=== PATIENT | male | born 1940 | race Two or more races ===

== ENCOUNTER 2017-01-18 14:43 | Emergency (ER) | payer MEDICARE, OTHER ==
--- NOTE | 2017-01-18 15:27 | PHYS DOC ---
Past History Past Medical History: CAD, CHF, Diabetes, Renal Failure, Vascular Disease Smoking: Non-smoker Alcohol Use: None Adult General Chief Complaint Chief Complaint: SYNCOPE HPI HPI Patient is a 77 year old male who presents with syncopal episode prior to arrival at home was standing going to the bathroom brief unresponsiveness no trauma to the head or neck. Denies chest pain shortness of breath vomiting or diarrhea. He recently moved here from [place] does not have a local doctor is on multiple medications for insulin-dependent diabetes and chronic renal failure with the need for possible dialysis and peripheral vascular disease. He does take Plavix and Lasix. Review of Systems Review of Systems Constitutional: Denies fever or chills [] Eyes: Denies change in visual acuity, redness, or eye pain [] HENT: Denies nasal congestion or sore throat [] Respiratory: Denies cough or shortness of breath [] Cardiovascular: No additional information not addressed in HPI [] GI: Denies abdominal pain, nausea, vomiting, bloody stools or diarrhea [] : Denies dysuria or hematuria [] Musculoskeletal: Denies back pain or joint pain [] Integument: Denies rash or skin lesions [] Neurologic: Denies headache, focal weakness or sensory changes [] Endocrine: Denies polyuria or polydipsia [] All other systems were reviewed and found to be within normal limits, except as documented in this note. Physical Exam Physical Exam Constitutional: Well developed, well nourished, no acute distress, non-toxic appearance. [] HENT: Normocephalic, atraumatic, bilateral external ears normal, oropharynx moist, no oral exudates, nose normal. [] Eyes: PERRLA, EOMI, conjunctiva normal, no discharge. [] Neck: Normal range of motion, no tenderness, supple, no stridor. [] Cardiovascular:Heart rate regular rhythm, no murmur [] Lungs & Thorax: Bilateral breath sounds clear to auscultation [] Abdomen: Bowel sounds normal, soft, no tenderness, no masses, no pulsatile masses. [] Skin: Warm, dry, no erythema, no rash. [] Back: No tenderness, no CVA tenderness. [] Extremities: No tenderness, no cyanosis, no clubbing, ROM intact, no edema. [] Neurologic: Alert and oriented X 3, normal motor function, normal sensory function, no focal deficits noted. [] Psychologic: Affect normal, judgement normal, mood normal. [] EKG EKG EKG[] normal sinus rhythm rate of 63 no STEMI QTC 423 my interpretation Radiology/Procedures Radiology/Procedures Chest x-ray no acute cardiopulmonary process my interpretation and review of images.[] Course & Med Decision Making Course & Med Decision Making Pertinent Labs and Imaging studies reviewed. (See chart for details) Plan to check labs EKG and chest x-ray and then reassess the situation. Patient appears well and has no complaints physically at this moment in time. Daughter reports she's passed out one other time.[ Labs demonstrate what I suspect to be chronic renal failure otherwise unremarkable chest x-ray showed no fluid overload or heart failure. Patient feels fine I recommended admission to the hospital for the syncope any physical therapy consultation and nephrology referral and they are declining this at this time the daughter is in process of getting his insurance transferred and then getting set up to sees various specialists.] Dragon Disclaimer Dragon Disclaimer This electronic medical record was generated, in whole or in part, using a voice recognition dictation system. Departure Departure: Impression: Primary Impression: Micturition syncope Additional Impressions: Chronic renal failure General weakness Patient Instructions: Chronic Renal Insufficiency, Syncope, [id number] Additional Instructions: Please follow-up with a local primary care doctor. Problem Qualifiers MIRNA GALICIA MD Jan 18, 2017 15:27
--- NOTE | 2017-01-18 15:27 | RAD ---
Single view of the Chest 01/18/2017 5:11 PM Indication: syncope Comparison: None Findings: There is no focal consolidation or infiltrate identified. There is no effusion or pneumothorax. The cardiomediastinal silhouette and pulmonary vasculature are within normal limits. No osseous abnormality is identified. Impression: No evidence of acute cardiopulmonary process.
[2017-01-18 15:44] LABS: BASO % 1 % (0-3); EOS # 0.2 x10^3/uL (0.0-0.7); EOS % 3 % (0-3); HEMATOCRIT 38.9 % (39.0-53.0); LYMPH % 18 % (24-48); MEAN CORPUSCULAR HEMOGLOBIN 33 pg (25-35); MEAN CORPUSCULAR HGB CONC 33 g/dL (31-37); MEAN CORPUSCULAR VOLUME 98 fL (79-100); MONO # 0.4 x10^3/uL (0.0-1.1); MONO % 7 % (0-9); NEUT % 71 % (31-73); PLATELET COUNT 170 x10^3/uL (140-400); RED BLOOD COUNT 3.98 x10^6/uL (4.30-5.70); RED CELL DISTRIBUTION WIDTH 16.5 % (11.5-14.5); WHITE BLOOD COUNT 5.7 x10^3/uL (4.0-11.0)
[2017-01-18 15:55] LABS: ALBUMIN 3.8 g/dL (3.4-5.0); ALBUMIN/GLOBULIN RATIO 0.9 (1.0-1.7); CALCIUM 10.6 mg/dL (8.5-10.1); GFR 20.4; POTASSIUM 4.7 mmol/L (3.5-5.1); TOTAL BILIRUBIN 0.4 mg/dL (0.2-1.0); TOTAL PROTEIN 8.2 g/dL (6.4-8.2)
--- NOTE | 2017-01-18 16:51 | EKG ---
[address] [address] Test Date: 2017-01-18 Test Time: 16:46:31 Pat Name: CAITIE AKERS Department: Room: Gender: M Relief Charge Nurse: MIGUEL : 1940 Requested By: MIRNA GALICIA Order Number: [id number] Reading MD: Get Yancey MD Measurements Intervals [place] Rate: 63 P: -62 HI: 128 QRS: -66 QRSD: 118 T: 79 QT: 410 QTc: 423 Interpretive Statements SINUS RHYTHM ABNORMAL LEFT AXIS DEVIATION LEFT ANTERIOR FASCICULAR BLOCK Electronically Signed On 01-22-2017 14:09:33 [employer] R[address]TE DELIVERER by Get Yancey MD
[2017-01-18 17:37] VITALS: BP 144/88
== END 2017-01-18 16:50 | disposition home or self-care (01) ==
LOC: ER 14:43
DX: R55 Syncope and collapse (principal); I13.0 Hypertensive heart and chronic kidney disease with heart failure and stage 1 through stage 4 chronic kidney disease, or unspecified chronic kidney disease; E10.22 Type 1 diabetes mellitus with diabetic chronic kidney disease; N18.9 Chronic kidney disease, unspecified; I50.9 Heart failure, unspecified; I25.10 Atherosclerotic heart disease of native coronary artery without angina pectoris; Z79.4 Long term (current) use of insulin
CPT/HCPCS: 36415; 71010; 80053; 84484; 85025; 93005; 99285-25

== ENCOUNTER 2017-02-16 11:09 | Inpatient (IN) | payer MEDICARE ==
[~2017-02-16] VITALS: Ht 170.2 cm; Wt 55.3 kg
[2017-02-16 12:39] LABS: BASO % 1 % (0-3); EOS # 0.2 x10^3/uL (0.0-0.7); EOS % 4 % (0-3); HEMATOCRIT 39.6 % (39.0-53.0); LYMPH # 1.4 x10^3/uL (1.0-4.8); LYMPH % 25 % (24-48); MEAN CORPUSCULAR HEMOGLOBIN 33 pg (25-35); MEAN CORPUSCULAR HGB CONC 33 g/dL (31-37); MEAN CORPUSCULAR VOLUME 99 fL (79-100); MONO # 0.4 x10^3/uL (0.0-1.1); MONO % 8 % (0-9); NEUT # 3.4 x10^3uL (1.8-7.7); NEUT % 62 % (31-73); PLATELET COUNT 144 x10^3/uL (140-400); RED BLOOD COUNT 4.01 x10^6/uL (4.30-5.70); RED CELL DISTRIBUTION WIDTH 15.6 % (11.5-14.5); WHITE BLOOD COUNT 5.5 x10^3/uL (4.0-11.0)
[2017-02-16] MEDS ORDERED: CALC0.256 PO (12:56)
[2017-02-16] MEDS ORDERED: ALLO100T66 PO (12:56)
[2017-02-16] MEDS ORDERED: FURO-69 PO (12:56)
[2017-02-16] MEDS ORDERED: CLOP75TA57 PO (12:56)
[2017-02-16] MEDS ORDERED: DONE5TAB56 PO (12:56)
[2017-02-16] MEDS ORDERED: ATEN-56 PO (12:56)
[2017-02-16] MEDS ORDERED: SIMV5TAB PO (12:56)
[2017-02-16] MEDS ORDERED: PARO10TA57 PO (12:56)
[2017-02-16 12:58] LABS: CALCIUM 9.7 mg/dL (8.5-10.1); GFR 20.4
[2017-02-16 12:59] LABS: BILIRUBIN,URINE NEG (NEG); CLARITY,URINE CLEAR; COLOR,URINE STRAW; GLUCOSE,URINE NEG (NEG)
[2017-02-16 13:00] LABS: BACTERIA,URINE 0 /HPF (0-FEW); NITRITE,URINE NEG (NEG); RBC,URINE 0 /HPF (0-2); SQUAMOUS EPITHELIAL CELL,UR OCC /LPF; UROBILINOGEN,URINE 0.2 mg/dL (0.2 mg/dL); WBC,URINE 0 /HPF (0-4)
[2017-02-16] MEDS ORDERED: INSU100C4 SQ (13:08)
[2017-02-16] MEDS ORDERED: TOBR5DRO6 OD (13:11)
[2017-02-16] MEDS ORDERED: MULT1TAB52 PO (13:11)
[2017-02-16 13:18] VITALS: BP 166/88
[2017-02-16 15:01] VITALS: BP 157/79
[2017-02-16] MEDS: IV NORMAL SALINE 1,000ML 1,000 ML IV SCH (15:15)
[2017-02-16] MEDS ORDERED: INSULIN ASPART 300 UNITS/3 ML INSULN.PEN SQ SCH (16:30)
[2017-02-16] MEDS: TOBRAMYCIN 0.3% OPHTH SOLUTION 5ML BOTTLE. OD SCH ×2 (17:40→20:55)
--- NOTE | 2017-02-16 19:17 | RAD ---
CT Head W/O Contrast: History: UNSTEADY GAIT, TREMORS
Comparison: none Axial images were obtained without contrast. The quintero and white matter appears normal and symmetrical for the patients age. There is no mass effect, extraaxial fluid collections or hydrocephalus. There is no gross bleed. There is no focal loss of quintero-white matter distinction to suggest acute ischemia, i.e. stroke. Impression: No acute findings. PQRS Compliance Statement: One or more of the following individualized dose reduction techniques were utilized for this examination: 1. Automated exposure control 2. Adjustment of the mA and/or kV according to patient size 3. Use of iterative reconstruction technique Electronically signed by: Toño Case III, MD (02/16/2017 7:15 PM) [facility]
[2017-02-16] MEDS ORDERED: MECLIZINE 12.5 MG TABLET. PO PRN (19:30)
[2017-02-16 19:46] VITALS: BP 156/84
[2017-02-16] MEDS: SIMVASTATIN 10 MG TABLET PO SCH (20:48)
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
[2017-02-16] MEDS ORDERED: INSULIN DETEMIR 300 UNITS/3 ML INSULN.PEN. SQ SCH (21:00)
[2017-02-16] MEDS ORDERED: INSULN ASP PRT/INSULIN ASPART 300 UNITS/3 ML INSULN.PEN. SQ SCH (21:00)
[2017-02-16 23:29] VITALS: BP 162/83
[2017-02-16] MEDS ORDERED: Influenza vaccine per PROTOCOL. MC PRN (23:30)
[2017-02-16] MEDS ORDERED: PNEUMOCOCCAL VAX SCREEN. MC PRN (23:30)
[2017-02-17] MEDS: IV NORMAL SALINE 1,000ML 1,000 ML IV SCH ×2 (03:51→19:58)
[2017-02-17 05:43] VITALS: BP 144/68
[2017-02-17 06:08] LABS: CALCIUM 9.2 mg/dL (8.5-10.1); CREATININE 2.8 mg/dL (0.7-1.3); GFR 22.1; POTASSIUM 3.9 mmol/L (3.5-5.1)
[2017-02-17] MEDS ORDERED: DEXTROSE 50% 25 GM / 50ML DISP.SYRIN. IV ONE (06:20)
[2017-02-17] MEDS ORDERED: DEXTROSE 50% 25 GM / 50ML DISP.SYRIN. IV PRN (07:15)
[2017-02-17] MEDS: MULTIVITAMIN with MINERAL TABLET. PO SCH (08:35)
[2017-02-17] MEDS: FUROSEMIDE 20 MG TABLET PO SCH (08:37)
[2017-02-17] MEDS: ATENOLOL 25 MG TABLET PO SCH (08:37)
[2017-02-17] MEDS: CLOPIDOGREL BISULFATE 75 MG TABLET PO SCH (08:37)
[2017-02-17] MEDS: ALLOPURINOL 100 MG TABLET. PO SCH (08:37)
[2017-02-17] MEDS: CALCITRIOL 0.25 MCG CAPSULE PO SCH (08:38)
[2017-02-17] MEDS: PARoxetine 10 MG TABLET PO SCH (08:38)
[2017-02-17] MEDS: TOBRAMYCIN 0.3% OPHTH SOLUTION 5ML BOTTLE. OD SCH ×4 (08:38→19:57)
[2017-02-17] MEDS ORDERED: FLU VACC QS2017-18 (36MOS+)/PF 0.5 ML SYRINGE. VAX IM ONE (09:00)
[2017-02-17] MEDS ORDERED: PNEUMOC CONJ VACC 23-VALENT 0.5 ML VIAL. VAX IM ONE (09:00)
--- NOTE | 2017-02-17 09:17 | RAD ---
Two-view chest 02/16/2017 Clinical indication: Shortness of air. Comparison: 01/18/2017 chest Findings: Cardiac and mediastinal silhouettes unremarkable. No pleural effusion, pneumothorax or focal consolidation. Impression: No acute cardiopulmonary abnormality.
[2017-02-17 10:40] LABS: ALBUMIN 3.5 g/dL (3.4-5.0); DIRECT BILIRUBIN 0.1 mg/dL (0.0-0.2); TOTAL BILIRUBIN 0.3 mg/dL (0.2-1.0); TOTAL PROTEIN 7.1 g/dL (6.4-8.2)
[2017-02-17 11:13] VITALS: BP 108/61
[2017-02-17] MEDS ORDERED: PRIMIDONE 50 MG TABLET PO ONE (15:30)
[2017-02-17 15:33] VITALS: BP 101/44
--- NOTE | 2017-02-17 19:56 | PN ---
DATE: SUBJECTIVE: A 77-year-old gentleman with change in mental status, resting fairly comfortably, still has decreased mentation as well as paucity of speech. Blood pressure 140/60, respiratory rate 14, pulse in the 50s. The patient seems to be resting fairly well. He is being worked by PT, OT, seems to be breathing a little bit better. OBJECTIVE: VITAL SIGNS: Blood pressure 140/60, respiratory rate 14, pulse ___. LUNGS: Diminished throughout, but clear. CARDIOVASCULAR: Regular sinus rhythm. ABDOMEN: Soft. EXTREMITIES: The patient still has a paucity of movements as well. Marked rigidity and stiffness noted. Sugar apparently did drop down to 32 this morning, given additional sugar as well as cut back on his insulin at night. He has shown some improvement on his renal function, probably could be from dehydration and seems to be doing better along that line as well. In any case, the patient still has marked rigidity. CT scan was basically unremarkable here. Chest x-ray showed no acute findings. Presently, he is still receiving IV fluids, IV medications and other labs results are still pending in terms of his B12, folate, and did a RPR. IMPRESSION: Change in mental status, marked rigidity, familial tremor versus Parkinson disease versus general encephalopathy, type 2 diabetes, poor control. PLAN: As above. CHARLES COX MD DR: MARIAELENA/nancy JOB#: [id number] / [id number]
[2017-02-17] MEDS: SIMVASTATIN 10 MG TABLET PO SCH (19:57)
[2017-02-17] MEDS: PRIMIDONE 50 MG TABLET PO SCH (19:57)
[2017-02-17] MEDS: INSULIN DETEMIR 300 UNITS/3 ML INSULN.PEN. SQ SCH (19:59)
[2017-02-17 20:03] VITALS: BP 126/64
[2017-02-17 23:22] VITALS: BP 154/73
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
--- NOTE | 2017-02-18 01:06 | PN ---
DATE: SUBJECTIVE: The patient appeared to resting comfortably and has no new medical or neurological complaints. OBJECTIVE: GENERAL: Thin [place]ib[place]ian male, not in acute distress. VITAL SIGNS: Blood pressure 108/61, respiratory rate 14, pulse is 54, temperature 97.6, and oxygen saturation 99% on room air. HEENT: Normocephalic, atraumatic, otherwise unremarkable. NECK: Supple. Negative for carotid bruit, lymphadenopathy or thyromegaly. LUNGS: Clear to A and P. CARDIOVASCULAR: Regular rate and rhythm, normal S1, S2. ABDOMEN: Soft. Bowel sounds positive. EXTREMITIES: Negative for cyanosis, clubbing or pitting edema. NEUROLOGICAL: Mental Status: The patient is alert and oriented x 3. Speech is fluent. There is no language dysfunction, otherwise unremarkable. Cranial nerves are intact. Motor examination revealed no focal muscle bulk was seen. The tone is normal. The strength is 4/5 throughout. Sensory examination revealed normal pinprick and light touch senses throughout. Deep tendon reflexes were symmetric, but hyporeflexia in the upper and lower extremities. Gait unsteady stance. IMPRESSION: 1. Essential tremor. 2. Vertigo. 3. Multiple medical problems include hypertension, hyperlipidemia, diabetes mellitus, coronary artery disease. RECOMMENDATIONS: Continue with current medical and neurological care. Physical therapy as tolerated. M Levar FROST MD DR: KENNETH/nancy JOB#: [id number] / [id number]
[2017-02-18 02:06] LABS: HEMOGLOBIN A1C 6.6 % (4.8-5.6)
[2017-02-18] MEDS: IV NORMAL SALINE 1,000ML 1,000 ML IV SCH ×2 (04:55→20:12)
[2017-02-18 05:30] VITALS: BP 104/51
[2017-02-18 07:29] LABS: BASO % 1 % (0-3); EOS # 0.2 x10^3/uL (0.0-0.7); EOS % 5 % (0-3); HEMATOCRIT 28.4 % (39.0-53.0); HEMOGLOBIN 9.5 g/dL (13.0-17.5); LYMPH # 1.2 x10^3/uL (1.0-4.8); LYMPH % 28 % (24-48); MEAN CORPUSCULAR HEMOGLOBIN 33 pg (25-35); MEAN CORPUSCULAR HGB CONC 33 g/dL (31-37); MEAN CORPUSCULAR VOLUME 99 fL (79-100); MONO # 0.5 x10^3/uL (0.0-1.1); MONO % 11 % (0-9); NEUT # 2.4 x10^3uL (1.8-7.7); NEUT % 55 % (31-73); PLATELET COUNT 118 x10^3/uL (140-400); RED BLOOD COUNT 2.87 x10^6/uL (4.30-5.70); RED CELL DISTRIBUTION WIDTH 15.8 % (11.5-14.5); WHITE BLOOD COUNT 4.3 x10^3/uL (4.0-11.0)
[2017-02-18 07:56] LABS: ALBUMIN 2.9 g/dL (3.4-5.0); ALBUMIN/GLOBULIN RATIO 0.9 (1.0-1.7); CALCIUM 8.7 mg/dL (8.5-10.1); CREATININE 2.8 mg/dL (0.7-1.3); GFR 22.1; POTASSIUM 4.5 mmol/L (3.5-5.1); TOTAL BILIRUBIN 0.3 mg/dL (0.2-1.0)
[2017-02-18] MEDS: CLOPIDOGREL BISULFATE 75 MG TABLET PO SCH (08:19)
[2017-02-18] MEDS: FUROSEMIDE 20 MG TABLET PO SCH (08:19)
[2017-02-18] MEDS: MULTIVITAMIN with MINERAL TABLET. PO SCH (08:19)
[2017-02-18] MEDS: PARoxetine 10 MG TABLET PO SCH (08:19)
[2017-02-18] MEDS: ALLOPURINOL 100 MG TABLET. PO SCH (08:19)
[2017-02-18] MEDS: TOBRAMYCIN 0.3% OPHTH SOLUTION 5ML BOTTLE. OD SCH ×4 (08:19→20:12)
[2017-02-18] MEDS: ATENOLOL 25 MG TABLET PO SCH (08:20)
[2017-02-18] MEDS: CALCITRIOL 0.25 MCG CAPSULE PO SCH (08:21)
[2017-02-18 11:11] VITALS: BP 97/60
[2017-02-18] MEDS: methylPREDNISolone SOD SUCC PF 40 MG/ML VIAL. IV SCH (11:59)
[2017-02-18 15:26] VITALS: BP 152/87
[2017-02-18 15:27] VITALS: BP 152/78
[2017-02-18 19:52] VITALS: BP 129/63
[2017-02-18] MEDS: PRIMIDONE 50 MG TABLET PO SCH (20:12)
[2017-02-18] MEDS: SIMVASTATIN 10 MG TABLET PO SCH (20:12)
[2017-02-18] MEDS: INSULIN DETEMIR 300 UNITS/3 ML INSULN.PEN. SQ SCH (20:13)
--- NOTE | 2017-02-19 02:34 | PN ---
DATE: 02/18/2017 SUBJECTIVE: The patient denies any new medical neurological complaints. The associate director of development is his daughter. The patient appeared to be not in acute distress. OBJECTIVE: GENERAL: Well-developed and well-nourished Welsh male, not in acute distress. VITAL SIGNS: Blood pressure 97/60, respiratory rate 16, pulse is 61, temperature is 97.8, and oxygen saturation 96% on room air. HEENT: Normocephalic and atraumatic, otherwise unremarkable. NECK: Supple. Negative for carotid bruit, lymphadenopathy or thyromegaly. LUNGS: Clear to A and P. CARDIOVASCULAR: Regular rate and rhythm, normal S1, S2. There is no S3 or S4 or murmur. ABDOMEN: Soft. Bowel sounds positive. EXTREMITIES: Negative for cyanosis, clubbing or pitting edema. NEUROLOGICAL EXAM: Mental Status: The patient is alert and oriented to place and time. Speech is fluent in Welsh. ____ Further evaluation is limited because of language barrier. Cranial nerves are grossly intact. Motor Examination: No focal muscle bulk was seen. The tone is normal. The strength is 4/5 throughout. The patient has a very mild postural and kinetic tremors of the upper extremities, which has improved significantly with medications - primidone. Sensory examination is normal to pinprick, light touch, vibratory and position senses. Deep tendon reflexes are symmetric and active without pathologic responses. Gait: The patient is still unsteady, but is able to use a walker. LABORATORY DATA: CBC revealed white blood cells of 4300, hemoglobin 9.5, hematocrit 28.4, and platelet count 118,000. Chemistry revealed sodium of 139, potassium 4.4, chloride 108, CO2 of 22. BUN 45, creatinine 2.8, glucose is 90, calcium is 8.7. IMPRESSION: 1. Essential tremor, has improved. 2. Vertigo, improved with medications. 3. Multiple medical problems include hyperlipidemia, diabetes mellitus, coronary artery disease, and chronic renal failure. 4. ____. RECOMMENDATIONS: 1. We will continue with primidone 1 tablet at bedtime. 2. We will discuss with Dr. Botello about the current treatment with furosemide. 3. The patient needs extensive physical therapy as tolerated. M Levar FROST MD DR: KENNETH/nancy JOB#: [id number] / [id number]
--- NOTE | 2017-02-19 02:44 | PN ---
DATE: 02/18/2017 SUBJECTIVE: A 77-year-old Faroese gentleman in with change in mental status, generalized weakness, failure to thrive. The patient is resting fairly comfortably. Nurses says he seems to be doing a little bit better. Albumin low at 2.9. Blood sugars in the 60s and 70s. His creatinine has come down somewhat with IV fluids. Otherwise, the patient is still very lethargic, but markedly improved from where he was. OBJECTIVE: VITAL SIGNS: Blood pressure approximately 100/60, respirations 16, pulse 60, afebrile. GENERAL: The patient is alert, but disoriented ____ speaks Syriac, we will have a information resources manager. LUNGS: Presently the lungs are diminished but clear. CARDIOVASCULAR: Stable. ABDOMEN: Soft, nontender. PLAN: The patient continues to receive physical and occupational therapy. We may put him on skilled unit for further evaluation and rehabilitation there. IMPRESSION: Failure to thrive, change in mental status, type 2 diabetes. Plan as above. CHARLES COX MD DR: MARIAELENA/nancy JOB#: [id number] / [id number]
[2017-02-19 05:32] VITALS: BP 149/79
[2017-02-19 06:29] LABS: CALCIUM 9.1 mg/dL (8.5-10.1); CREATININE 2.7 mg/dL (0.7-1.3); POTASSIUM 5.2 mmol/L (3.5-5.1)
[2017-02-19 06:32] LABS: BASO % 0 % (0-3); EOS % 0 % (0-3); HEMATOCRIT 30.2 % (39.0-53.0); LYMPH # 0.7 x10^3/uL (1.0-4.8); LYMPH % 10 % (24-48); MEAN CORPUSCULAR HEMOGLOBIN 33 pg (25-35); MEAN CORPUSCULAR HGB CONC 33 g/dL (31-37); MEAN CORPUSCULAR VOLUME 99 fL (79-100); MONO # 0.2 x10^3/uL (0.0-1.1); MONO % 3 % (0-9); NEUT # 6.3 x10^3uL (1.8-7.7); NEUT % 87 % (31-73); PLATELET COUNT 121 x10^3/uL (140-400); RED BLOOD COUNT 3.06 x10^6/uL (4.30-5.70); RED CELL DISTRIBUTION WIDTH 15.7 % (11.5-14.5); WHITE BLOOD COUNT 7.2 x10^3/uL (4.0-11.0)
[2017-02-19] MEDS: CLOPIDOGREL BISULFATE 75 MG TABLET PO SCH (08:45)
[2017-02-19] MEDS: TOBRAMYCIN 0.3% OPHTH SOLUTION 5ML BOTTLE. OD SCH ×4 (08:45→21:28)
[2017-02-19] MEDS: methylPREDNISolone SOD SUCC PF 40 MG/ML VIAL. IV SCH (08:45)
[2017-02-19] MEDS: MULTIVITAMIN with MINERAL TABLET. PO SCH (08:50)
[2017-02-19] MEDS: ALLOPURINOL 100 MG TABLET. PO SCH (08:50)
[2017-02-19] MEDS: FUROSEMIDE 20 MG TABLET PO SCH (08:50)
[2017-02-19] MEDS: CALCITRIOL 0.25 MCG CAPSULE PO SCH (08:51)
[2017-02-19] MEDS: PARoxetine 10 MG TABLET PO SCH (08:51)
[2017-02-19] MEDS: ATENOLOL 25 MG TABLET PO SCH (08:51)
[2017-02-19 11:20] VITALS: BP 147/72
[2017-02-19] MEDS: IV NORMAL SALINE 1,000ML 1,000 ML IV SCH ×2 (13:09→23:19)
[2017-02-19] MEDS: AZTREONAM 0.5 GM in IV NORMAL SALINE 50ML 50 ML IV SCH ×3 (13:09→23:19)
[2017-02-19] MEDS: AMPICILLIN 1 GM in IV NORMAL SALINE 50ML 50 ML IV SCH ×2 (14:18→18:23)
[2017-02-19 15:27] VITALS: BP 167/81
[2017-02-19] MEDS ORDERED: DEXTROSE 50% 25 GM / 50ML DISP.SYRIN. IV PRN (17:00)
[2017-02-19 19:57] VITALS: BP 164/72
[2017-02-19] MEDS: INSULIN ASPART 300 UNITS/3 ML INSULN.PEN SQ SCH (21:00)
[2017-02-19] MEDS: LACTOBACILLUS RHAMNOSUS GG 1 CAPSULE. PO SCH (21:28)
[2017-02-19] MEDS: PRIMIDONE 50 MG TABLET PO SCH (21:28)
[2017-02-19] MEDS: INSULIN DETEMIR 300 UNITS/3 ML INSULN.PEN. SQ SCH (21:29)
--- NOTE | 2017-02-19 22:21 | PN ---
DATE: 02/19/2017 SUBJECTIVE: The patient denies any new medical or neurological complaints. OBJECTIVE: GENERAL: Well-developed, well nourished Nigerian male, not in acute distress. VITAL SIGNS: Blood pressure 149/79, respiratory rate 16, pulse is 68 and regular, temperature 97.8, oxygen saturation is 97% on room air. HEENT: Normocephalic, atraumatic, otherwise, unremarkable. NECK: Supple. Negative for carotid bruit, lymphadenopathy, JVD or thyromegaly. LUNGS: Clear to A and P. CARDIOVASCULAR: Regular rate and rhythm, normal S1, S2. There is no S3, S4 or murmur. ABDOMEN: Soft. Bowel sounds positive. EXTREMITIES: Negative for cyanosis, clubbing or pitting edema. NEUROLOGICAL EXAM: Mental Status: The patient is alert and oriented x 2. Speech is fluent. Further evaluation is limited because of language barrier. Cranial nerves are grossly intact. No focal motor deficit. The strength is 4/5 throughout. Sensory examination revealed normal pinprick and light touch senses throughout. Deep tendon reflexes were symmetric and active without pathologic responses. Gait: The stance is more steady. The patient uses a walker for ambulation. LABORATORY DATA: CBC revealed white blood cells of 7.2 thousand, hemoglobin 10, hematocrit 30, platelet count 121,000. Chemistry revealed sodium of 139, potassium 5.2, chloride 108, CO2 22, BUN 47, creatinine 2.7, glucose 209. IMPRESSION: 1. Essential tremor - improved. 2. Vertigo, the patient feels better. 3. Multiple medical problems includes chronic and probably acute renal failure, diabetes mellitus, hypertension, hyperlipidemia, coronary artery disease and unsteady gait. RECOMMENDATIONS: 1. Continue with current management initiated by Dr. Botello. 2. Continue with primidone 50 mg at bedtime and meclizine 12.5 mg t.i.d. p.r.n. for dizziness. 3. Physical therapy as tolerated. M Levar FROST MD DR: KENNETH/nancy JOB#: [id number] / [id number]
[2017-02-20] MEDS: AMPICILLIN 1 GM in IV NORMAL SALINE 50ML 50 ML IV SCH ×4 (00:22→18:00)
[2017-02-20 05:22] VITALS: BP 139/69
[2017-02-20] MEDS: AZTREONAM 0.5 GM in IV NORMAL SALINE 50ML 50 ML IV SCH ×4 (05:28→23:49)
[2017-02-20] MEDS: INSULIN ASPART 300 UNITS/3 ML INSULN.PEN SQ SCH ×4 (07:30→20:54)
--- NOTE | 2017-02-20 08:40 | PN ---
DATE: 02/19/2017 SUBJECTIVE: The patient resting fairly comfortably, still very quiet, not responding very well. The patient does have infection in his ears with pseudomonas and enterococcus. He has been started on IV antibiotic therapy for such. OBJECTIVE: VITAL SIGNS: Blood pressure 160/72, respiratory rate 20, pulse 90, afebrile. The patient is arousable, but very sedate. LUNGS: Diminished throughout, but clear. CARDIOVASCULAR: Regular sinus rhythm. ABDOMEN: Soft, nontender. IMPRESSION: Change in mental status, otitis externa, type 2 diabetes, thrombocytopenia, hyperkalemia, and chronic kidney disease stage 3. PLAN: We will continue with IV antibiotic therapy and possibly get him to some better skilled unit. CHARLES COX MD DR: MARIAELENA/nancy JOB#: [id number] / [id number]
[2017-02-20] MEDS: TOBRAMYCIN 0.3% OPHTH SOLUTION 5ML BOTTLE. OD SCH ×4 (08:41→20:49)
[2017-02-20] MEDS: LACTOBACILLUS RHAMNOSUS GG 1 CAPSULE. PO SCH ×2 (08:43→20:49)
[2017-02-20] MEDS: ALLOPURINOL 100 MG TABLET. PO SCH (08:44)
[2017-02-20] MEDS: MULTIVITAMIN with MINERAL TABLET. PO SCH (08:44)
[2017-02-20] MEDS: CLOPIDOGREL BISULFATE 75 MG TABLET PO SCH (08:45)
[2017-02-20] MEDS: ATENOLOL 25 MG TABLET PO SCH (08:45)
[2017-02-20] MEDS: CALCITRIOL 0.25 MCG CAPSULE PO SCH (08:45)
[2017-02-20] MEDS: FUROSEMIDE 20 MG TABLET PO SCH (08:47)
[2017-02-20] MEDS: predniSONE 5 MG TABLET PO SCH (08:50)
[2017-02-20] MEDS: PARoxetine 20 MG TABLET PO SCH (09:00)
[2017-02-20 10:49] VITALS: BP 106/51
[2017-02-20 15:29] VITALS: BP 135/65
[2017-02-20 19:41] VITALS: BP 153/70
[2017-02-20] MEDS: IV NORMAL SALINE 1,000ML 1,000 ML IV SCH (20:49)
[2017-02-20] MEDS: PRIMIDONE 50 MG TABLET PO SCH (20:49)
[2017-02-20] MEDS: INSULIN DETEMIR 300 UNITS/3 ML INSULN.PEN. SQ SCH (20:53)
--- NOTE | 2017-02-20 21:08 | PN ---
DATE: SUBJECTIVE: The patient was found to have external otitis with pseudomonas. Dr. Botello started him on IV antibiotics. There are no new neurological complaints. OBJECTIVE: GENERAL: Well-developed, well nourished male, not in acute distress. VITAL SIGNS: Blood pressure 139/69, respiratory rate 20, pulse is 67, oxygen saturation 95% on room air. HEENT: Normocephalic, atraumatic. NECK: Supple. Negative for carotid bruit, lymphadenopathy or thyromegaly. LUNGS: Clear to A and P. CARDIOVASCULAR: Regular rhythm, normal S1, S2. ABDOMEN: Soft. Bowel sounds positive. EXTREMITIES: Negative for cyanosis, clubbing or pitting edema. NEUROLOGICAL: Mental Status: The patient is alert and oriented x2. Cranial Nerves: Intact. Motor Examination: No focal muscle bulk was seen. The tone is normal. The strength is 4/5 throughout. The patient has less postural and kinetic tremors. Sensory Examination: Revealed normal pinprick and light touch senses throughout. Deep tendon reflexes are symmetric and active without pathologic responses. Gait: The patient is more steady. IMPRESSION: 1. Postural and kinetic tremors, represent essential tremor, improved with medication. 2. Vertigo, improved. 3. Multiple medical problems include hyperlipidemia, hypertension, coronary artery disease, diabetes mellitus, renal failure, arthritis, and external otitis. RECOMMENDATIONS: Continue with current management and physical therapy as tolerated. M Levar FROST MD DR: KENNETH/nancy JOB#: [id number] / [id number]
--- NOTE | 2017-02-20 21:16 | PN ---
DATE: 02/20/2017 SUBJECTIVE: A 77-year-old gentleman from [place], had been very lethargic, change in mental status. The patient has been found to have a significant pseudomonal infection in his ear, from cultures taken in [place]. He has been switched over to appropriate antibiotic therapy. He is doing much better this morning. He is more alert, more responsive. The patient was up eating which is something I have not seen him do since he has been air. OBJECTIVE: VITAL SIGNS: Blood pressure 140/70, respiratory rate 20, pulse 60, afebrile. GENERAL: The patient is alert. His speech is still somewhat guarded, but he is markedly improved from what he was the other day. LUNGS: Clear to auscultation. CARDIOVASCULAR: Regular sinus rhythm. HEENT: The ears look less infected overall. ABDOMEN: Soft, nontender. EXTREMITIES: No clubbing, cyanosis, nor edema. The patient is making excellent progress overall. His creatinine is also coming down and shows improvement with the IV fluids there. IMPRESSION: Change in mental status, possible encephalopathy from pseudomonal infection of the ear. PLAN: We will continue on IV antibiotic therapy as the pharmacy, whether or not these IVs could be put into some type of either oral or drops, to help him with his continued ear infection. We will send him home, but we will continue with the IV antibiotics for now. CHARLES COX MD DR: MARIAELENA/nancy JOB#: [id number] / [id number]
[2017-02-21] MEDS: AMPICILLIN 1 GM in IV NORMAL SALINE 50ML 50 ML IV SCH ×3 (00:45→12:04)
[2017-02-21] MEDS: IV NORMAL SALINE 1,000ML 1,000 ML IV SCH ×2 (01:55→14:39)
[2017-02-21 05:08] VITALS: BP 154/68
[2017-02-21] MEDS: AZTREONAM 0.5 GM in IV NORMAL SALINE 50ML 50 ML IV SCH ×2 (05:09→14:39)
[2017-02-21 07:15] LABS: CALCIUM 8.5 mg/dL (8.5-10.1); CREATININE 2.4 mg/dL (0.7-1.3); GFR 26.4; POTASSIUM 4.1 mmol/L (3.5-5.1)
[2017-02-21] MEDS: INSULIN ASPART 300 UNITS/3 ML INSULN.PEN SQ SCH ×3 (07:30→16:30)
[2017-02-21] MEDS: TOBRAMYCIN 0.3% OPHTH SOLUTION 5ML BOTTLE. OD SCH ×2 (09:09→14:39)
[2017-02-21] MEDS: ALLOPURINOL 100 MG TABLET. PO SCH (09:10)
[2017-02-21] MEDS: PARoxetine 20 MG TABLET PO SCH (09:10)
[2017-02-21] MEDS: FUROSEMIDE 20 MG TABLET PO SCH (09:10)
[2017-02-21] MEDS: predniSONE 5 MG TABLET PO SCH (09:10)
[2017-02-21] MEDS: CLOPIDOGREL BISULFATE 75 MG TABLET PO SCH (09:10)
[2017-02-21] MEDS: MULTIVITAMIN with MINERAL TABLET. PO SCH (09:10)
[2017-02-21] MEDS: LACTOBACILLUS RHAMNOSUS GG 1 CAPSULE. PO SCH (09:10)
[2017-02-21] MEDS: ATENOLOL 25 MG TABLET PO SCH (09:11)
[2017-02-21] MEDS: CALCITRIOL 0.25 MCG CAPSULE PO SCH (09:11)
[2017-02-21 10:29] VITALS: BP 112/60
[2017-02-21] MEDS ORDERED: ZOLPIDEM 5 MG TABLET. PO PRN ×2 (11:00→22:00)
[2017-02-21 12:22] LABS: FECAL OB PT NEGATIVE (NEG)
[2017-02-21 14:37] VITALS: BP 118/60
[2017-02-21] MEDS ORDERED: LACT1CAP19 PO (15:53)
[2017-02-21] MEDS ORDERED: ZOLP5TAB PO (15:53)
[2017-02-21] MEDS ORDERED: INSU100I17 SQ (15:53)
[2017-02-21] MEDS ORDERED: DEXT50DI3 IV (15:53)
[2017-02-21] MEDS ORDERED: MECL12.52 PO (15:53)
[2017-02-21] MEDS ORDERED: PRED5TAB PO (15:53)
[2017-02-21] MEDS ORDERED: PARO20TA3 PO (15:53)
[2017-02-21] MEDS ORDERED: PRIM50TA24 PO (15:53)
[2017-02-21] MEDS ORDERED: AZTR1VIA2 IV (19:53)
[2017-02-21] MEDS ORDERED: AMPI1VIA3 IV (19:53)
[2017-02-21] MEDS ORDERED: INSU100I27 SQ (19:53)
--- NOTE | 2017-02-21 22:33 | PN ---
DATE: REFERRING PHYSICIAN: Dr. Botello. SUBJECTIVE: The patient denies any new medical or neurological complaints. OBJECTIVE: GENERAL: Well-developed, well-nourished male, not in acute distress. VITAL SIGNS: Blood pressure 154/68, respiratory rate 20, pulse is 60 and regular, temperature 99% on room air. HEENT: Normocephalic, atraumatic, otherwise unremarkable. NECK: Supple. Negative for carotid bruit, lymphadenopathy or thyromegaly. LUNGS: Clear to A and P. CARDIOVASCULAR: Regular rate and rhythm, normal S1, S2. ABDOMEN: Soft. Bowel sounds positive. EXTREMITIES: Negative for cyanosis, clubbing or pitting edema. NEUROLOGICAL EXAM: Mental Status: The patient is alert and oriented x 2. He follows commands. He follows 1-step commands. However, the examination is limited because of language barrier. His daughter is not available for translation. The patient appears not in acute distress. No facial asymmetry. Pupils are reactive to light and accommodation. The extraocular movements are intact. There is no nystagmus. The patient moves all upper and lower extremities well equally. Mild postural and kinetic tremors of the upper extremities were noted. The tone is normal. The strength is 4/5 throughout. Sensory examination: Normal pinprick and light touch senses. Deep tendon reflexes are symmetric and active without pathologic responses. Gait: The patient is more steady than been before. IMPRESSION: 1. Tremor of the upper extremities represents essential tremor, improved by primidone. 2. Multiple medical problems include diabetes mellitus, hypertension, hyperlipidemia, external otitis, chronic renal failure and possible mental status changes, difficulty to assess this time because of language barrier, and depression. RECOMMENDATIONS: Continue with current management initiated by Dr. Botello and continue with current medications. M Levar FROST MD DR: KENNETH/nancy JOB#: [id number] / [id number]
--- NOTE | 2017-02-22 07:56 | PN ---
DATE: 02/21/2017 SUBJECTIVE: This is a 77-year-old male with diabetes, has significant infection in his right ear. The patient is doing much better with the IV antibiotic therapy. He grew out E. coli, Pseudomonas, Providencia, Enterococcus faecalis out of the ear, and he is on appropriate IV antibiotic therapy. Blood pressure 122/56, respiratory rate 20, pulse 80, afebrile. I talked with the daughter. We can try to continue IV antibiotic therapy as an outpatient and make further assessment. The patient is markedly more alert than he has been since he came in. We will continue on the IV antibiotic therapy and make further evaluation on him per those results. OBJECTIVE: LUNGS: Clear. CARDIOVASCULAR: Regular sinus rhythm. EARS: Right ear still swollen, but not as bad as it was. The drainage is markedly diminished. IMPRESSION: Change in mental status, significant otitis media external otitis. PLAN: As above, to continue his IV antibiotic therapy. CHARLES COX MD DR: MARIAELENA/nancy JOB#: [id number] / [id number]
== END 2017-02-21 18:24 | disposition swing bed (61) | DRG 154 ==
LOC: 1 SOUTH 11:56
PROVIDERS: ADMIT Family Medicine; ATTEND Family Medicine
DX: H60.21 Malignant otitis externa, right ear (principal); G93.41 Metabolic encephalopathy; D69.6 Thrombocytopenia, unspecified; E11.22 Type 2 diabetes mellitus with diabetic chronic kidney disease; E87.5 Hyperkalemia; N18.3 Chronic kidney disease, stage 3 (moderate); Z68.1 Body mass index [BMI] 19.9 or less, adult; R62.7 Adult failure to thrive; E78.5 Hyperlipidemia, unspecified; F32.9 Major depressive disorder, single episode, unspecified; G25.0 Essential tremor; I12.9 Hypertensive chronic kidney disease with stage 1 through stage 4 chronic kidney disease, or unspecified chronic kidney disease; I25.10 Atherosclerotic heart disease of native coronary artery without angina pectoris; M10.9 Gout, unspecified; M19.90 Unspecified osteoarthritis, unspecified site; R63.4 Abnormal weight loss; B96.20 Unspecified Escherichia coli [E. coli] as the cause of diseases classified elsewhere; B95.2 Enterococcus as the cause of diseases classified elsewhere; F03.90 Unspecified dementia, unspecified severity, without behavioral disturbance, psychotic disturbance, mood disturbance, and anxiety; Z98.61 Coronary angioplasty status; Z79.899 Other long term (current) drug therapy
CPT/HCPCS: 36415; 70450; 71020; 80048; 80053; 80076; 81001; 82274; 82306; 82607; 82947; 83036; 84443; 85025; 85651; 86593; 90686; 90732; J0290; J1815; J2920; J3490; J7512; J8597; 97110; 97116; 97530; J7030

== ENCOUNTER 2017-02-21 18:40 | Inpatient (IN) | payer MEDICARE ==
[~2017-02-21] VITALS: Ht 165.1 cm; Wt 60.9 kg
[2017-02-21 18:40] VITALS: BP 125/78
[~2017-02-21 18:40] MED LIST: ALLO100T66 PO; ATEN-56 PO; CALC0.256 PO; CLOP75TA57 PO; DEXT50DI3 IV; DONE5TAB56 PO; FURO-69 PO; INSU100C4 SQ; INSU100I17 SQ; LACT1CAP19 PO; MECL12.52 PO; MULT1TAB52 PO; PARO10TA57 PO; PARO20TA3 PO; PRED5TAB PO; PRIM50TA24 PO; SIMV5TAB PO; TOBR5DRO6 OD; ZOLP5TAB PO
[2017-02-21] MEDS ORDERED: INSU100I27 SQ (19:53)
[2017-02-21] MEDS ORDERED: AMPI1VIA3 IV (19:53)
[2017-02-21] MEDS ORDERED: AZTR1VIA2 IV (19:53)
[2017-02-21] MEDS ORDERED: [UNRECOGNIZED DRUG - OTHER] IV PRN (20:00)
[2017-02-21] MEDS ORDERED: DEXTROSE IV PRN (20:00)
[2017-02-21] MEDS ORDERED: MECLIZINE 12.5 MG TABLET. PO PRN (20:00)
[2017-02-21] MEDS ORDERED: ZOLPIDEM 5 MG TABLET. PO PRN (20:00)
[2017-02-21] MEDS ORDERED: DEXTROSE 50% 25 GM / 50ML DISP.SYRIN. IV PRN ×2 (20:15)
[2017-02-21] MEDS ORDERED: NON FORMULARY ITEM (Insulin Aspart (Novolog) 0 UNIT) SQ SCH (21:00)
[2017-02-21] MEDS: TOBRAMYCIN 0.3% OPHTH SOLUTION 5ML BOTTLE. OD SCH (21:11)
[2017-02-21] MEDS: LACTOBACILLUS RHAMNOSUS GG 1 CAPSULE. PO SCH (21:12)
[2017-02-21] MEDS: PRIMIDONE 50 MG TABLET PO SCH (21:12)
[2017-02-21] MEDS: INSULIN DETEMIR 300 UNITS/3 ML INSULN.PEN. SQ SCH (21:13)
[2017-02-21] MEDS: INSULIN ASPART 300 UNITS/3 ML INSULN.PEN SQ SCH (21:14)
[2017-02-21] MEDS: NORMAL SALINE IV SCH (23:39)
[2017-02-21] MEDS: AZTREONAM IV SCH (23:39)
[2017-02-22] MEDS ORDERED: AMPICILLIN 1 GM VIAL IV SCH
[2017-02-22] MEDS ORDERED: AZTREONAM 1 GM VIAL. IV SCH
[2017-02-22] MEDS: AMPICILLIN 1 GM in IV NORMAL SALINE 50ML 50 ML IV SCH ×2 (00:25→06:07)
[2017-02-22] MEDS: AZTREONAM IV SCH ×2 (05:33→13:07)
[2017-02-22] MEDS: NORMAL SALINE IV SCH ×2 (05:33→13:07)
[2017-02-22 06:06] VITALS: BP 133/59
[2017-02-22] MEDS: INSULIN ASPART 300 UNITS/3 ML INSULN.PEN SQ SCH ×4 (07:30→20:39)
[2017-02-22] MEDS ORDERED: PARoxetine 20 MG TABLET PO SCH (09:00)
[2017-02-22] MEDS: MULTIVITAMIN with MINERAL TABLET. PO SCH (09:25)
[2017-02-22] MEDS: predniSONE 5 MG TABLET PO SCH (09:26)
[2017-02-22] MEDS: PARoxetine 20 MG TABLET PO SCH (09:26)
[2017-02-22] MEDS: CLOPIDOGREL BISULFATE 75 MG TABLET PO SCH (09:27)
[2017-02-22] MEDS: CALCITRIOL 0.25 MCG CAPSULE PO SCH (09:27)
[2017-02-22] MEDS: ALLOPURINOL 100 MG TABLET. PO SCH (09:27)
[2017-02-22] MEDS: LACTOBACILLUS RHAMNOSUS GG 1 CAPSULE. PO SCH ×2 (09:27→20:10)
[2017-02-22] MEDS: TOBRAMYCIN 0.3% OPHTH SOLUTION 5ML BOTTLE. OD SCH ×4 (09:28→20:10)
[2017-02-22 09:35] VITALS: BP 92/60
[2017-02-22] MEDS ORDERED: AMPICILLIN IV SCH (12:00)
[2017-02-22] MEDS ORDERED: NORMAL SALINE IV SCH (12:00)
[2017-02-22] MEDS: FUROSEMIDE 20 MG TABLET PO SCH (13:06)
[2017-02-22] MEDS: ATENOLOL 25 MG TABLET PO SCH (13:06)
--- NOTE | 2017-02-22 18:22 | PDOC ---
Exam Note: Stuart Note: Please also refer to the separate dictated note~for this date of service dictated separately.~Patient seen individually. Discussed the patient with Nursing staff reviewed the chart.~Reviewed interim history and current functioning. Reviewed vital signs,~Labs/ Radiology~and current medications noted below. Continue current treatment with the changes noted in the dictated addendum note Assessment: Vital Signs: Vital Signs Date Time Temp Pulse Resp B/P (MAP) Pulse Ox O2 Delivery O2 Flow Rate FiO2 02/22/17 13:06 65 123/73 02/22/17 09:35 97.8 18 99 Room Air I&O Intake and Output 02/22/17 07:00 Intake Total 1952 ml Output Total 751 ml Balance 1201 ml Intake Oral 1500 ml IV Total 452 ml Output Urine Total 750 ml Stool Total 1 ml # Voids 1 Labs: Laboratory Tests Test 02/21/17 23:43 02/22/17 07:01 02/22/17 11:57 02/22/17 17:00 Glucose (Fingerstick) 271 mg/dL (70-99) H 141 mg/dL (70-99) H 224 mg/dL (70-99) H 206 mg/dL (70-99) H Current Medications: Meds: Current Medications Allopurinol (Zyloprim) 100 mg DAILY PO Last administered on 02/22/17 09:27; Start 02/22/17 at 09:00 Ampicillin Sodium (Omnipen) 1 gm Q6HRS IV ; Start 02/22/17 at 00:00; Stop at 00:00; Status DC Atenolol (Tenormin) 25 mg DAILY PO Last administered on 02/22/17 13:06; Start 02/22/17 at 09:00 Aztreonam (Azactam) 0.5 gm Q6HRS IV ; Start 02/22/17 at 00:00; Stop 02/22/17 at 00:00; Status DC Calcitriol (Rocaltrol) 0.25 mcg DAILY PO Last administered on 02/22/17 09:27 ; Start 02/22/17 at 09:00 Clopidogrel Bisulfate (Plavix) 75 mg DAILY PO Last administered on 02/22/17 09:27; Start 02/22/17 at 09:00 Furosemide (Lasix) 20 mg DAILY PO Last administered on 02/22/17 13:06; Start 02/22/17 at 09:00 Insulin Detemir (Levemir) 5 units HS SQ Last administered on 02/21/17 21:13; Start 02/21/17 at 21:00 Lactobacillus Rhamnosus (Culturelle) 1 cap BID PO Last administered on 09:27; Start 02/21/17 at 21:00 Meclizine HCl (Antivert) 12.5 mg PRN Q6HRS PRN PO DIZZINESS; Start 02/21/17 at 20:00 Paroxetine HCl (Paxil) 20 mg DAILY PO ; Start 02/22/17 at 09:00; Stop at 09:00; Status DC Prednisone (Prednisone) 5 mg DAILY PO Last administered on 02/22/17 09:26; Start 02/22/17 at 09:00 Primidone (Mysoline) 50 mg QHS PO Last administered on 02/21/17 21:12; Start 02/21/17 at 21:00 Tobramycin Sulfate (Tobrex Ophth Soln) 1 drop QID OD Last administered on 02/22 17:04; Start 02/21/17 at 21:00 Zolpidem Tartrate (Ambien) 2.5 mg PRN QHS PRN PO INSOMNIA, MAY REPEAT IN 1HR; Start 02/21/17 at 20:00 Non-Formulary Medication 12.5 gm PRN Q15MIN PRN IV SEE COMMENTS; Start at 20:00; Stop 02/21/17 at 20:16; Status DC Non-Formulary Medication QIDACHS SQ ; Start 02/21/17 at 21:00; Stop 02/21/17 at 21:00; Status DC Multivitamins/ Calcium (Thera-M Plus) 1 tab DAILY PO Last administered on 02/22 09:25; Start 02/22/17 at 09:00 Ampicillin Sodium 1 gm/Sodium Chloride 50 ml @ 100 mls/hr Q6HRS IV Last administered on 02/22/17 06:07; Start 02/22/17 at 00:00; Stop 02/22/17 at 06 :29; Status DC Ampicillin Sodium 1 gm/Sodium Chloride 100 ml @ 200 mls/hr Q6HRS IV Last administered on 02/22/17 14:17; Start 02/22/17 at 12:00; Stop 02/22/17 at 15 :01; Status DC Aztreonam 0.5 gm/ Sodium Chloride 100 ml @ 200 mls/hr Q6HRS IV Last administered on 02/22/17 13:07; Start 02/22/17 at 00:00; Stop 02/22/17 at 15 :01; Status DC Dextrose 12.5 gm PRN Q15MIN PRN IV SEE COMMENTS; Start 02/21/17 at 20:15; Stop 02/21/17 at 20:17; Status DC Insulin Aspart (NovoLOG) 0-9 UNITS QIDACHS SQ Last administered on 02/22/17 17:08; Start 02/21/17 at 21:00 Dextrose 12.5 gm PRN Q15MIN PRN IV SEE COMMENTS; Start 02/21/17 at 20:15 Paroxetine HCl (Paxil) 30 mg DAILY PO Last administered on 02/22/17 09:26; Start 02/22/17 at 09:00 Amoxicillin (Amoxil) 500 mg [id number] PO ; Start 02/22/17 at 21:00 Active Scripts Active Ambien (Zolpidem Tartrate) 5 Mg Tablet 2.5 Mg PO PRN QHS PRN 30 Days Mysoline (Primidone) 50 Mg Tablet 50 Mg PO QHS 30 Days Prednisone 5 Mg Tablet 5 Mg PO DAILY 30 Days Meclizine Hcl 12.5 Mg Tablet 12.5 Mg PO PRN Q6HRS PRN 14 Days Culturelle (Lactobacillus Rhamnosus Gg) 1 Each Cap.sprink 1 Cap PO BID 14 Days Dextrose 50%-Water Syringe (Dextrose 50 % In Water) 50 Ml Disp.syrin 12.5 Gm IV PRN Q15MIN PRN 30 Days Paroxetine Hcl 20 Mg Tablet 1 Tab PO DAILY Reported Ampicillin Sodium 1 Gm Vial 1 Gm IV Q6HRS Aztreonam 1 Gm Vial 0.5 Gm IV Q6HRS Levemir Flextouch (Insulin Detemir) 100 Unit/1 Ml Insuln.pen 5 Unit SQ HS Multivitamins (Multivitamin) 1 Each Tablet 1 Tab PO DAILY Tobramycin 5 Ml Drops 1 Drop OD QID Novolog (Insulin Aspart) 100 Unit/1 Ml Cartridge 0-9 Unit SQ QIDACHS Rocaltrol (Calcitriol) 0.25 Mcg Capsule 1 Cap PO DAILY Lasix (Furosemide) 20 Mg Tablet 1 Tab PO DAILY Tenormin (Atenolol) 25 Mg Tablet 1 Tab PO DAILY Zyloprim (Allopurinol) 100 Mg Tablet 100 Mg PO DAILY Plavix (Clopidogrel Bisulfate) 75 Mg Tablet 1 Tab PO DAILY I have reviewed the current psychotropics carefully including drug interactions. Risk benefit ratio favors no change other than as noted in my dictated progress note. Diagnosis: Problems: (1) Anxiety disorder (2) Anxiety disorder RUTHIE ROTHMAN MD Feb 22, 2017 18:22
[2017-02-22 18:43] VITALS: BP 127/70
[2017-02-22] MEDS: AMOXICILLIN 250 MG CAPSULE PO SCH (20:10)
[2017-02-22] MEDS: PRIMIDONE 50 MG TABLET PO SCH (20:10)
[2017-02-22] MEDS: INSULIN DETEMIR 300 UNITS/3 ML INSULN.PEN. SQ SCH (20:13)
[2017-02-23 05:43] VITALS: BP 155/89
[2017-02-23 06:33] LABS: CALCIUM 8.4 mg/dL (8.5-10.1); CREATININE 2.7 mg/dL (0.7-1.3); POTASSIUM 4.8 mmol/L (3.5-5.1)
[2017-02-23 06:37] LABS: BASO % 1 % (0-3); EOS # 0.2 x10^3/uL (0.0-0.7); EOS % 3 % (0-3); HEMOGLOBIN 9.4 g/dL (13.0-17.5); LYMPH # 1.5 x10^3/uL (1.0-4.8); LYMPH % 25 % (24-48); MEAN CORPUSCULAR HEMOGLOBIN 33 pg (25-35); MEAN CORPUSCULAR HGB CONC 34 g/dL (31-37); MEAN CORPUSCULAR VOLUME 99 fL (79-100); MONO # 0.6 x10^3/uL (0.0-1.1); MONO % 10 % (0-9); NEUT # 3.7 x10^3uL (1.8-7.7); NEUT % 62 % (31-73); PLATELET COUNT 114 x10^3/uL (140-400); RED BLOOD COUNT 2.82 x10^6/uL (4.30-5.70); RED CELL DISTRIBUTION WIDTH 15.7 % (11.5-14.5)
[2017-02-23] MEDS: CALCITRIOL 0.25 MCG CAPSULE PO SCH (08:10)
[2017-02-23] MEDS: CLOPIDOGREL BISULFATE 75 MG TABLET PO SCH (08:10)
[2017-02-23] MEDS: PARoxetine 20 MG TABLET PO SCH (08:11)
[2017-02-23] MEDS: FUROSEMIDE 20 MG TABLET PO SCH (08:11)
[2017-02-23] MEDS: predniSONE 5 MG TABLET PO SCH (08:11)
[2017-02-23] MEDS: MULTIVITAMIN with MINERAL TABLET. PO SCH (08:11)
[2017-02-23] MEDS: ATENOLOL 25 MG TABLET PO SCH (08:12)
[2017-02-23] MEDS: LACTOBACILLUS RHAMNOSUS GG 1 CAPSULE. PO SCH ×2 (08:14→20:03)
[2017-02-23] MEDS: ALLOPURINOL 100 MG TABLET. PO SCH (08:14)
[2017-02-23] MEDS: TOBRAMYCIN 0.3% OPHTH SOLUTION 5ML BOTTLE. OD SCH ×4 (08:14→20:03)
[2017-02-23] MEDS: INSULIN ASPART 300 UNITS/3 ML INSULN.PEN SQ SCH ×4 (08:20→20:11)
[2017-02-23] MEDS: AMOXICILLIN 250 MG CAPSULE PO SCH ×3 (11:18→20:04)
--- NOTE | 2017-02-23 17:41 | PDOC ---
Exam Note: Stuart Note: Please also refer to the separate dictated note~for this date of service dictated separately.~Patient seen individually. Discussed the patient with Nursing staff reviewed the chart.~Reviewed interim history and current functioning. Reviewed vital signs,~Labs/ Radiology~and current medications noted below. Continue current treatment with the changes noted in the dictated addendum note Assessment: Vital Signs: Vital Signs Date Time Temp Pulse Resp B/P (MAP) Pulse Ox O2 Delivery O2 Flow Rate FiO2 02/23/17 08:12 65 155/89 02/23/17 08:00 Room Air 02/23/17 05:43 97.9 18 98 I&O Intake and Output 02/23/17 07:00 Intake Total 940 ml Output Total 1 ml Balance 939 ml Intake Oral 940 ml Stool Total 1 ml # Voids 4 Labs: Laboratory Tests Test 02/22/17 19:51 02/23/17 06:13 02/23/17 07:59 02/23/17 11:53 Glucose (Fingerstick) 213 mg/dL (70-99) H 167 mg/dL (70-99) H 108 mg/dL (70-99) H White Blood Count 6.0 x10^3/uL (4.0-11.0) Red Blood Count 2.82 x10^6/uL (4.30-5.70) L Hemoglobin 9.4 g/dL (13.0-17.5) L Hematocrit 28.0 % (39.0-53.0) L Mean Corpuscular Volume 99 fL (79-100) Mean Corpuscular Hemoglobin 33 pg (25-35) Mean Corpuscular Hemoglobin Concent 34 g/dL (31-37) Red Cell Distribution Width 15.7 % (11.5-14.5) H Platelet Count 114 x10^3/uL (140-400) L Neutrophils (%) (Auto) 62 % (31-73) Lymphocytes (%) (Auto) 25 % (24-48) Monocytes (%) (Auto) 10 % (0-9) H Eosinophils (%) (Auto) 3 % (0-3) Basophils (%) (Auto) 1 % (0-3) Neutrophils # (Auto) 3.7 x10^3uL (1.8-7.7) Lymphocytes # (Auto) 1.5 x10^3/uL (1.0-4.8) Monocytes # (Auto) 0.6 x10^3/uL (0.0-1.1) Eosinophils # (Auto) 0.2 x10^3/uL (0.0-0.7) Basophils # (Auto) 0.0 x10^3/uL (0.0-0.2) Sodium Level 135 mmol/L (136-145) L Potassium Level 4.8 mmol/L (3.5-5.1) Chloride Level 105 mmol/L (98-107) Carbon Dioxide Level 24 mmol/L (21-32) Anion Gap 6 (6-14) Blood Urea Nitrogen 60 mg/dL (8-26) H Creatinine 2.7 mg/dL (0.7-1.3) H Estimated GFR (Cockcroft-Gault) 23.0 Glucose Level 226 mg/dL (70-99) H Calcium Level 8.4 mg/dL (8.5-10.1) L Test 02/23/17 16:45 Glucose (Fingerstick) 243 mg/dL (70-99) H Current Medications: Meds: Current Medications Allopurinol (Zyloprim) 100 mg DAILY PO Last administered on 02/23/17 08:14; Start 02/22/17 at 09:00 Ampicillin Sodium (Omnipen) 1 gm Q6HRS IV ; Start 02/22/17 at 00:00; Stop at 00:00; Status DC Atenolol (Tenormin) 25 mg DAILY PO Last administered on 02/23/17 08:12; Start 02/22/17 at 09:00 Aztreonam (Azactam) 0.5 gm Q6HRS IV ; Start 02/22/17 at 00:00; Stop 02/22/17 at 00:00; Status DC Calcitriol (Rocaltrol) 0.25 mcg DAILY PO Last administered on 02/23/17 08:10 ; Start 02/22/17 at 09:00 Clopidogrel Bisulfate (Plavix) 75 mg DAILY PO Last administered on 02/23/17 08:10; Start 02/22/17 at 09:00 Furosemide (Lasix) 20 mg DAILY PO Last administered on 02/23/17 08:11; Start 02/22/17 at 09:00 Insulin Detemir (Levemir) 5 units HS SQ Last administered on 02/22/17 20:13; Start 02/21/17 at 21:00 Lactobacillus Rhamnosus (Culturelle) 1 cap BID PO Last administered on 08:14; Start 02/21/17 at 21:00 Meclizine HCl (Antivert) 12.5 mg PRN Q6HRS PRN PO DIZZINESS; Start 02/21/17 at 20:00 Paroxetine HCl (Paxil) 20 mg DAILY PO ; Start 02/22/17 at 09:00; Stop at 09:00; Status DC Prednisone (Prednisone) 5 mg DAILY PO Last administered on 02/23/17 08:11; Start 02/22/17 at 09:00 Primidone (Mysoline) 50 mg QHS PO Last administered on 02/22/17 20:10; Start 02/21/17 at 21:00 Tobramycin Sulfate (Tobrex Ophth Soln) 1 drop QID OD Last administered on 02/23 16:53; Start 02/21/17 at 21:00 Zolpidem Tartrate (Ambien) 2.5 mg PRN QHS PRN PO INSOMNIA, MAY REPEAT IN 1HR; Start 02/21/17 at 20:00 Non-Formulary Medication 12.5 gm PRN Q15MIN PRN IV SEE COMMENTS; Start at 20:00; Stop 02/21/17 at 20:16; Status DC Non-Formulary Medication QIDACHS SQ ; Start 02/21/17 at 21:00; Stop 02/21/17 at 21:00; Status DC Multivitamins/ Calcium (Thera-M Plus) 1 tab DAILY PO Last administered on 02/23 08:11; Start 02/22/17 at 09:00 Ampicillin Sodium 1 gm/Sodium Chloride 50 ml @ 100 mls/hr Q6HRS IV Last administered on 02/22/17 06:07; Start 02/22/17 at 00:00; Stop 02/22/17 at 06 :29; Status DC Ampicillin Sodium 1 gm/Sodium Chloride 100 ml @ 200 mls/hr Q6HRS IV Last administered on 02/22/17 14:17; Start 02/22/17 at 12:00; Stop 02/22/17 at 15 :01; Status DC Aztreonam 0.5 gm/ Sodium Chloride 100 ml @ 200 mls/hr Q6HRS IV Last administered on 02/22/17 13:07; Start 02/22/17 at 00:00; Stop 02/22/17 at 15 :01; Status DC Dextrose 12.5 gm PRN Q15MIN PRN IV SEE COMMENTS; Start 02/21/17 at 20:15; Stop 02/21/17 at 20:17; Status DC Insulin Aspart (NovoLOG) 0-9 UNITS QIDACHS SQ Last administered on 02/23/17 16:55; Start 02/21/17 at 21:00 Dextrose 12.5 gm PRN Q15MIN PRN IV SEE COMMENTS; Start 02/21/17 at 20:15 Paroxetine HCl (Paxil) 30 mg DAILY PO Last administered on 02/23/17 08:11; Start 02/22/17 at 09:00 Amoxicillin (Amoxil) 500 mg [id number] PO Last administered on 02/23/17 14:15; Start 02/22/17 at 21:00 Active Scripts Active Ambien (Zolpidem Tartrate) 5 Mg Tablet 2.5 Mg PO PRN QHS PRN 30 Days Mysoline (Primidone) 50 Mg Tablet 50 Mg PO QHS 30 Days Prednisone 5 Mg Tablet 5 Mg PO DAILY 30 Days Meclizine Hcl 12.5 Mg Tablet 12.5 Mg PO PRN Q6HRS PRN 14 Days Culturelle (Lactobacillus Rhamnosus Gg) 1 Each Cap.sprink 1 Cap PO BID 14 Days Dextrose 50%-Water Syringe (Dextrose 50 % In Water) 50 Ml Disp.syrin 12.5 Gm IV PRN Q15MIN PRN 30 Days Paroxetine Hcl 20 Mg Tablet 1 Tab PO DAILY Reported Ampicillin Sodium 1 Gm Vial 1 Gm IV Q6HRS Aztreonam 1 Gm Vial 0.5 Gm IV Q6HRS Levemir Flextouch (Insulin Detemir) 100 Unit/1 Ml Insuln.pen 5 Unit SQ HS Multivitamins (Multivitamin) 1 Each Tablet 1 Tab PO DAILY Tobramycin 5 Ml Drops 1 Drop OD QID Novolog (Insulin Aspart) 100 Unit/1 Ml Cartridge 0-9 Unit SQ QIDACHS Rocaltrol (Calcitriol) 0.25 Mcg Capsule 1 Cap PO DAILY Lasix (Furosemide) 20 Mg Tablet 1 Tab PO DAILY Tenormin (Atenolol) 25 Mg Tablet 1 Tab PO DAILY Zyloprim (Allopurinol) 100 Mg Tablet 100 Mg PO DAILY Plavix (Clopidogrel Bisulfate) 75 Mg Tablet 1 Tab PO DAILY I have reviewed the current psychotropics carefully including drug interactions. Risk benefit ratio favors no change other than as noted in my dictated progress note. Diagnosis: Problems: (1) Anxiety disorder (2) Major depressive disorder, recurrent episode RUTHIE ROTHMAN MD Feb 23, 2017 17:41
[2017-02-23 18:06] VITALS: BP 145/79
[2017-02-23] MEDS: PRIMIDONE 50 MG TABLET PO SCH (20:04)
[2017-02-23] MEDS: INSULIN DETEMIR 300 UNITS/3 ML INSULN.PEN. SQ SCH (20:11)
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
[2017-02-24 05:45] VITALS: BP 145/76
[2017-02-24] MEDS: INSULIN ASPART 300 UNITS/3 ML INSULN.PEN SQ SCH ×4 (07:30→20:23)
[2017-02-24] MEDS: TOBRAMYCIN 0.3% OPHTH SOLUTION 5ML BOTTLE. OD SCH ×4 (10:32→20:19)
[2017-02-24] MEDS: AMOXICILLIN 250 MG CAPSULE PO SCH ×3 (10:32→20:18)
[2017-02-24] MEDS: FUROSEMIDE 20 MG TABLET PO SCH (10:33)
[2017-02-24] MEDS: ALLOPURINOL 100 MG TABLET. PO SCH (10:33)
[2017-02-24] MEDS: PARoxetine 20 MG TABLET PO SCH (10:33)
[2017-02-24] MEDS: CALCITRIOL 0.25 MCG CAPSULE PO SCH (10:33)
[2017-02-24] MEDS: LACTOBACILLUS RHAMNOSUS GG 1 CAPSULE. PO SCH ×2 (10:33→20:18)
[2017-02-24] MEDS: CLOPIDOGREL BISULFATE 75 MG TABLET PO SCH (10:33)
[2017-02-24] MEDS: predniSONE 5 MG TABLET PO SCH (10:33)
[2017-02-24] MEDS: MULTIVITAMIN with MINERAL TABLET. PO SCH (10:34)
[2017-02-24] MEDS: ATENOLOL 25 MG TABLET PO SCH (10:34)
[2017-02-24] MEDS: PRIMIDONE 50 MG TABLET PO SCH (10:34)
--- NOTE | 2017-02-24 17:44 | PDOC ---
Exam Note: Stuart Note: Please also refer to the separate dictated note~for this date of service dictated separately.~Patient seen individually. Discussed the patient with Nursing staff reviewed the chart.~Reviewed interim history and current functioning. Reviewed vital signs,~Labs/ Radiology~and current medications noted below. Continue current treatment with the changes noted in the dictated addendum note Assessment: Vital Signs: Vital Signs Date Time Temp Pulse Resp B/P (MAP) Pulse Ox O2 Delivery O2 Flow Rate FiO2 02/24/17 10:34 60 145/76 02/24/17 08:00 Room Air 02/24/17 05:45 97.5 18 99 I&O Intake and Output 02/24/17 07:00 Intake Total 840 ml Balance 840 ml Intake Oral 840 ml # Voids 4 Labs: Laboratory Tests Test 02/23/17 19:52 02/24/17 07:44 02/24/17 11:42 02/24/17 16:39 Glucose (Fingerstick) 258 mg/dL (70-99) H 136 mg/dL (70-99) H 212 mg/dL (70-99) H 329 mg/dL (70-99) H Current Medications: Meds: Current Medications Allopurinol (Zyloprim) 100 mg DAILY PO Last administered on 02/24/17 10:33; Start 02/22/17 at 09:00 Ampicillin Sodium (Omnipen) 1 gm Q6HRS IV ; Start 02/22/17 at 00:00; Stop at 00:00; Status DC Atenolol (Tenormin) 25 mg DAILY PO Last administered on 02/24/17 10:34; Start 02/22/17 at 09:00 Aztreonam (Azactam) 0.5 gm Q6HRS IV ; Start 02/22/17 at 00:00; Stop 02/22/17 at 00:00; Status DC Calcitriol (Rocaltrol) 0.25 mcg DAILY PO Last administered on 02/24/17 10:33 ; Start 02/22/17 at 09:00 Clopidogrel Bisulfate (Plavix) 75 mg DAILY PO Last administered on 02/24/17 10:33; Start 02/22/17 at 09:00 Furosemide (Lasix) 20 mg DAILY PO Last administered on 02/24/17 10:33; Start 02/22/17 at 09:00 Insulin Detemir (Levemir) 5 units HS SQ Last administered on 02/23/17 20:11; Start 02/21/17 at 21:00 Lactobacillus Rhamnosus (Culturelle) 1 cap BID PO Last administered on 10:33; Start 02/21/17 at 21:00 Meclizine HCl (Antivert) 12.5 mg PRN Q6HRS PRN PO DIZZINESS; Start 02/21/17 at 20:00 Paroxetine HCl (Paxil) 20 mg DAILY PO ; Start 02/22/17 at 09:00; Stop at 09:00; Status DC Prednisone (Prednisone) 5 mg DAILY PO Last administered on 02/24/17 10:33; Start 02/22/17 at 09:00 Primidone (Mysoline) 50 mg QHS PO Last administered on 02/24/17 10:34; Start 02/21/17 at 21:00 Tobramycin Sulfate (Tobrex Oph Soln) 1 drop QID OD Last administered on 02/24 13:00; Start 02/21/17 at 21:00 Zolpidem Tartrate (Ambien) 2.5 mg PRN QHS PRN PO INSOMNIA, MAY REPEAT IN 1HR; Start 02/21/17 at 20:00 Non-Formulary Medication 12.5 gm PRN Q15MIN PRN IV SEE COMMENTS; Start at 20:00; Stop 02/21/17 at 20:16; Status DC Non-Formulary Medication QIDACHS SQ ; Start 02/21/17 at 21:00; Stop 02/21/17 at 21:00; Status DC Multivitamins/ Calcium (Thera-M Plus) 1 tab DAILY PO Last administered on 02/24 10:34; Start 02/22/17 at 09:00 Ampicillin Sodium 1 gm/Sodium Chloride 50 ml @ 100 mls/hr Q6HRS IV Last administered on 02/22/17 06:07; Start 02/22/17 at 00:00; Stop 02/22/17 at 06 :29; Status DC Ampicillin Sodium 1 gm/Sodium Chloride 100 ml @ 200 mls/hr Q6HRS IV Last administered on 02/22/17 14:17; Start 02/22/17 at 12:00; Stop 02/22/17 at 15 :01; Status DC Aztreonam 0.5 gm/ Sodium Chloride 100 ml @ 200 mls/hr Q6HRS IV Last administered on 02/22/17 13:07; Start 02/22/17 at 00:00; Stop 02/22/17 at 15 :01; Status DC Dextrose 12.5 gm PRN Q15MIN PRN IV SEE COMMENTS; Start 02/21/17 at 20:15; Stop 02/21/17 at 20:17; Status DC Insulin Aspart (NovoLOG) 0-9 UNITS QIDACHS SQ Last administered on 02/24/17 15:00; Start 02/21/17 at 21:00 Dextrose 12.5 gm PRN Q15MIN PRN IV SEE COMMENTS; Start 02/21/17 at 20:15 Paroxetine HCl (Paxil) 30 mg DAILY PO Last administered on 02/24/17 10:33; Start 02/22/17 at 09:00 Amoxicillin (Amoxil) 500 mg [id number] PO Last administered on 02/24/17 14:03; Start 02/22/17 at 21:00 Active Scripts Active Ambien (Zolpidem Tartrate) 5 Mg Tablet 2.5 Mg PO PRN QHS PRN 30 Days Mysoline (Primidone) 50 Mg Tablet 50 Mg PO QHS 30 Days Prednisone 5 Mg Tablet 5 Mg PO DAILY 30 Days Meclizine Hcl 12.5 Mg Tablet 12.5 Mg PO PRN Q6HRS PRN 14 Days Culturelle (Lactobacillus Rhamnosus Gg) 1 Each Cap.sprink 1 Cap PO BID 14 Days Dextrose 50%-Water Syringe (Dextrose 50 % In Water) 50 Ml Disp.syrin 12.5 Gm IV PRN Q15MIN PRN 30 Days Paroxetine Hcl 20 Mg Tablet 1 Tab PO DAILY Reported Ampicillin Sodium 1 Gm Vial 1 Gm IV Q6HRS Aztreonam 1 Gm Vial 0.5 Gm IV Q6HRS Levemir Flextouch (Insulin Detemir) 100 Unit/1 Ml Insuln.pen 5 Unit SQ HS Multivitamins (Multivitamin) 1 Each Tablet 1 Tab PO DAILY Tobramycin 5 Ml Drops 1 Drop OD QID Novolog (Insulin Aspart) 100 Unit/1 Ml Cartridge 0-9 Unit SQ QIDACHS Rocaltrol (Calcitriol) 0.25 Mcg Capsule 1 Cap PO DAILY Lasix (Furosemide) 20 Mg Tablet 1 Tab PO DAILY Tenormin (Atenolol) 25 Mg Tablet 1 Tab PO DAILY Zyloprim (Allopurinol) 100 Mg Tablet 100 Mg PO DAILY Plavix (Clopidogrel Bisulfate) 75 Mg Tablet 1 Tab PO DAILY I have reviewed the current psychotropics carefully including drug interactions. Risk benefit ratio favors no change other than as noted in my dictated progress note. Diagnosis: Problems: (1) Major depressive disorder, recurrent episode (2) Anxiety disorder RUTHIE ROTHMAN MD Feb 24, 2017 17:44
[2017-02-24 18:07] VITALS: BP 135/63
[2017-02-24] MEDS: INSULIN DETEMIR 300 UNITS/3 ML INSULN.PEN. SQ SCH (20:22)
[2017-02-25 05:24] VITALS: BP 118/61
[2017-02-25] MEDS: INSULIN ASPART 300 UNITS/3 ML INSULN.PEN SQ SCH ×4 (07:30→20:11)
[2017-02-25] MEDS: AMOXICILLIN 250 MG CAPSULE PO SCH ×3 (07:34→20:06)
[2017-02-25] MEDS: TOBRAMYCIN 0.3% OPHTH SOLUTION 5ML BOTTLE. OD SCH ×4 (07:34→20:06)
[2017-02-25] MEDS: ATENOLOL 25 MG TABLET PO SCH (07:35)
[2017-02-25] MEDS: FUROSEMIDE 20 MG TABLET PO SCH (07:35)
[2017-02-25] MEDS: MULTIVITAMIN with MINERAL TABLET. PO SCH (07:35)
[2017-02-25] MEDS: LACTOBACILLUS RHAMNOSUS GG 1 CAPSULE. PO SCH ×2 (07:35→20:06)
[2017-02-25] MEDS: CLOPIDOGREL BISULFATE 75 MG TABLET PO SCH (07:35)
[2017-02-25] MEDS: predniSONE 5 MG TABLET PO SCH (07:36)
[2017-02-25] MEDS: CALCITRIOL 0.25 MCG CAPSULE PO SCH (07:36)
[2017-02-25] MEDS: buPROPion XL 150 MG TAB.ER.24H PO SCH (07:39)
[2017-02-25] MEDS: ALLOPURINOL 100 MG TABLET. PO SCH (07:39)
--- NOTE | 2017-02-25 09:19 | PN ---
DATE: 02/23/2017 This is a late entry 02/23/2017 covers elements not covered in my initial note 02/23/2017. SUBJECTIVE: I met with the patient evening of 02/23/2017 and met with his daughter at length as well, gathered his history. Daughter states the patient has been depressed even prior to the move from [place] and had been started on Paxil at that time. He has been extremely sedated, withdrawn, according to the daughter, sleeping most of the time. She is concerned that once he starts to feeling better, he will want to go back to [place] and there is no one there to take care of him. She does have an older brother there, but he is unable to provide the care needed for him. Cognitively, he has had some short-term memory deficits. REVIEW OF SYSTEMS: No CV, , pulmonary, eye system symptoms on review, not very verbally interactive. MENTAL STATUS EXAM: Oriented to himself and situation. Speech moderate latency, often responses monosyllabic. Abstraction fair, computation impaired, language function intact. Mood and affect depressed. IMPRESSION: Unchanged from initial note, major depressive disorder, recurrent; anxiety disorder, unspecified; rest unchanged. PLAN: We will consider changing Paxil to Wellbutrin, which would be more activating antidepressant given his marked withdrawal, apathy, amotivation and tiredness and sedation much of the day described by his daughter. We will make that decision on 02/24/2017. Continue rest unchanged per initial note. RUTHIE ROTHMAN MD DR: REJI/nancy JOB#: [id number] / [id number]
--- NOTE | 2017-02-25 09:28 | PN ---
DATE: 02/24/2017 PSYCHIATRIC PROGRESS NOTE This note covers elements not covered in my initial note of 02/24/2017. SUBJECTIVE: The patient was seen individually evening of 02/24/2017. Per nursing report, the patient has still been withdrawn, sedated with low energy, but has been coming out more and he was out for the evening as I met with him. REVIEW OF SYSTEMS: No CV, , pulmonary, eye system symptoms on review. Communication is impaired as he talks just in Georgian. MENTAL STATUS EXAM: Reasonably oriented. Speech, often responses monosyllabic and this seemed to be quite an effort for him even to attempt to communicate. Abstraction fair, computation impaired, language function intact. No active suicidal or homicidal ideation. IMPRESSION: Major depressive disorder, recurrent; anxiety disorder, unspecified. PLAN: Change Paxil to Wellbutrin XL 150 mg a day in the morning, continue rest unchanged per initial note. RUTHIE ROTHMAN MD DR: REJI/nancy JOB#: [id number] / [id number]
[2017-02-25 18:03] VITALS: BP 137/77
--- NOTE | 2017-02-25 18:07 | PDOC ---
Exam Note: Stuart Note: Please also refer to the separate dictated note~for this date of service dictated separately.~Patient seen individually. Discussed the patient with Nursing staff reviewed the chart.~Reviewed interim history and current functioning. Reviewed vital signs,~Labs/ Radiology~and current medications noted below. Continue current treatment with the changes noted in the dictated addendum note Assessment: Vital Signs: Vital Signs Date Time Temp Pulse Resp B/P (MAP) Pulse Ox O2 Delivery O2 Flow Rate FiO2 02/25/17 18:03 98.1 72 20 137/77 (97) 99 Room Air I&O Intake and Output 02/25/17 07:00 Intake Total 1660 ml Balance 1660 ml Intake Oral 1660 ml # Voids 1 # Bowel Movements 1 Labs: Laboratory Tests Test 02/24/17 19:39 02/25/17 07:37 02/25/17 11:32 02/25/17 16:47 Glucose (Fingerstick) 336 mg/dL (70-99) H 100 mg/dL (70-99) H 302 mg/dL (70-99) H 184 mg/dL (70-99) H Current Medications: Meds: Current Medications Allopurinol (Zyloprim) 100 mg DAILY PO Last administered on 02/25/17 07:39; Start 02/22/17 at 09:00 Ampicillin Sodium (Omnipen) 1 gm Q6HRS IV ; Start 02/22/17 at 00:00; Stop at 00:00; Status DC Atenolol (Tenormin) 25 mg DAILY PO Last administered on 02/25/17 07:35; Start 02/22/17 at 09:00 Aztreonam (Azactam) 0.5 gm Q6HRS IV ; Start 02/22/17 at 00:00; Stop 02/22/17 at 00:00; Status DC Calcitriol (Rocaltrol) 0.25 mcg DAILY PO Last administered on 02/25/17 07:36 ; Start 02/22/17 at 09:00 Clopidogrel Bisulfate (Plavix) 75 mg DAILY PO Last administered on 02/25/17 07:35; Start 02/22/17 at 09:00 Furosemide (Lasix) 20 mg DAILY PO Last administered on 02/25/17 07:35; Start 02/22/17 at 09:00 Insulin Detemir (Levemir) 5 units HS SQ Last administered on 02/24/17 20:22; Start 02/21/17 at 21:00 Lactobacillus Rhamnosus (Culturelle) 1 cap BID PO Last administered on 07:35; Start 02/21/17 at 21:00 Meclizine HCl (Antivert) 12.5 mg PRN Q6HRS PRN PO DIZZINESS; Start 02/21/17 at 20:00 Paroxetine HCl (Paxil) 20 mg DAILY PO ; Start 02/22/17 at 09:00; Stop at 09:00; Status DC Prednisone (Prednisone) 5 mg DAILY PO Last administered on 02/25/17 07:36; Start 02/22/17 at 09:00 Primidone (Mysoline) 50 mg QHS PO Last administered on 02/24/17 10:34; Start 02/21/17 at 21:00 Tobramycin Sulfate (Tobrex Ophth Soln) 1 drop QID OD Last administered on 02/25 17:40; Start 02/21/17 at 21:00 Zolpidem Tartrate (Ambien) 2.5 mg PRN QHS PRN PO INSOMNIA, MAY REPEAT IN 1HR; Start 02/21/17 at 20:00 Non-Formulary Medication 12.5 gm PRN Q15MIN PRN IV SEE COMMENTS; Start at 20:00; Stop 02/21/17 at 20:16; Status DC Non-Formulary Medication QIDACHS SQ ; Start 02/21/17 at 21:00; Stop 02/21/17 at 21:00; Status DC Multivitamins/ Calcium (Thera-M Plus) 1 tab DAILY PO Last administered on 02/25 07:35; Start 02/22/17 at 09:00 Ampicillin Sodium 1 gm/Sodium Chloride 50 ml @ 100 mls/hr Q6HRS IV Last administered on 02/22/17 06:07; Start 02/22/17 at 00:00; Stop 02/22/17 at 06 :29; Status DC Ampicillin Sodium 1 gm/Sodium Chloride 100 ml @ 200 mls/hr Q6HRS IV Last administered on 02/22/17 14:17; Start 02/22/17 at 12:00; Stop 02/22/17 at 15 :01; Status DC Aztreonam 0.5 gm/ Sodium Chloride 100 ml @ 200 mls/hr Q6HRS IV Last administered on 02/22/17 13:07; Start 02/22/17 at 00:00; Stop 02/22/17 at 15 :01; Status DC Dextrose 12.5 gm PRN Q15MIN PRN IV SEE COMMENTS; Start 02/21/17 at 20:15; Stop 02/21/17 at 20:17; Status DC Insulin Aspart (NovoLOG) 0-9 UNITS QIDACHS SQ Last administered on 02/25/17 17:47; Start 02/21/17 at 21:00 Dextrose 12.5 gm PRN Q15MIN PRN IV SEE COMMENTS; Start 02/21/17 at 20:15 Paroxetine HCl (Paxil) 30 mg DAILY PO Last administered on 02/24/17 10:33; Start 02/22/17 at 09:00; Stop 02/24/17 at 17:44; Status DC Amoxicillin (Amoxil) 500 mg [id number] PO Last administered on 02/25/17 12:49; Start 02/22/17 at 21:00 Bupropion HCl (Wellbutrin Xl) 150 mg DAILY PO Last administered on 02/25/17 07:39; Start 02/25/17 at 09:00 Active Scripts Active Ambien (Zolpidem Tartrate) 5 Mg Tablet 2.5 Mg PO PRN QHS PRN 30 Days Mysoline (Primidone) 50 Mg Tablet 50 Mg PO QHS 30 Days Prednisone 5 Mg Tablet 5 Mg PO DAILY 30 Days Meclizine Hcl 12.5 Mg Tablet 12.5 Mg PO PRN Q6HRS PRN 14 Days Culturelle (Lactobacillus Rhamnosus Gg) 1 Each Cap.sprink 1 Cap PO BID 14 Days Dextrose 50%-Water Syringe (Dextrose 50 % In Water) 50 Ml Disp.syrin 12.5 Gm IV PRN Q15MIN PRN 30 Days Paroxetine Hcl 20 Mg Tablet 1 Tab PO DAILY Reported Ampicillin Sodium 1 Gm Vial 1 Gm IV Q6HRS Aztreonam 1 Gm Vial 0.5 Gm IV Q6HRS Levemir Flextouch (Insulin Detemir) 100 Unit/1 Ml Insuln.pen 5 Unit SQ HS Multivitamins (Multivitamin) 1 Each Tablet 1 Tab PO DAILY Tobramycin 5 Ml Drops 1 Drop OD QID Novolog (Insulin Aspart) 100 Unit/1 Ml Cartridge 0-9 Unit SQ QIDACHS Rocaltrol (Calcitriol) 0.25 Mcg Capsule 1 Cap PO DAILY Lasix (Furosemide) 20 Mg Tablet 1 Tab PO DAILY Tenormin (Atenolol) 25 Mg Tablet 1 Tab PO DAILY Zyloprim (Allopurinol) 100 Mg Tablet 100 Mg PO DAILY Plavix (Clopidogrel Bisulfate) 75 Mg Tablet 1 Tab PO DAILY I have reviewed the current psychotropics carefully including drug interactions. Risk benefit ratio favors no change other than as noted in my dictated progress note. Diagnosis: Problems: (1) Anxiety disorder (2) Major depressive disorder, recurrent episode RUTHIE ROTHMAN MD Feb 25, 2017 18:07
[2017-02-25] MEDS: PRIMIDONE 50 MG TABLET PO SCH (20:07)
[2017-02-25] MEDS: INSULIN DETEMIR 300 UNITS/3 ML INSULN.PEN. SQ SCH (20:10)
[2017-02-26 05:36] VITALS: BP 136/65
[2017-02-26] MEDS: INSULIN ASPART 300 UNITS/3 ML INSULN.PEN SQ SCH ×4 (07:30→21:36)
[2017-02-26] MEDS: AMOXICILLIN 250 MG CAPSULE PO SCH ×3 (08:03→21:16)
[2017-02-26] MEDS: LACTOBACILLUS RHAMNOSUS GG 1 CAPSULE. PO SCH ×2 (08:03→21:16)
[2017-02-26] MEDS: TOBRAMYCIN 0.3% OPHTH SOLUTION 5ML BOTTLE. OD SCH ×4 (08:03→21:16)
[2017-02-26] MEDS: CLOPIDOGREL BISULFATE 75 MG TABLET PO SCH (08:04)
[2017-02-26] MEDS: CALCITRIOL 0.25 MCG CAPSULE PO SCH (08:04)
[2017-02-26] MEDS: FUROSEMIDE 20 MG TABLET PO SCH (08:04)
[2017-02-26] MEDS: ATENOLOL 25 MG TABLET PO SCH (08:05)
[2017-02-26] MEDS: predniSONE 5 MG TABLET PO SCH (08:06)
[2017-02-26] MEDS: MULTIVITAMIN with MINERAL TABLET. PO SCH (08:06)
[2017-02-26] MEDS: buPROPion XL 150 MG TAB.ER.24H PO SCH (08:06)
[2017-02-26] MEDS: ALLOPURINOL 100 MG TABLET. PO SCH (08:44)
--- NOTE | 2017-02-26 12:20 | PN ---
DATE: 02/25/2017 PSYCHIATRIC PROGRESS NOTE This late entry 02/25/2017 covers elements not covered in my initial note for 02/25/2017. SUBJECTIVE: Met with the patient in the evening of 02/25/2017 and also met with his daughter who was visiting him. Discussed with nursing staff. Overall, Per nursing report, the patient has been coming out little more interactive but the daughter states he seems more confused, somewhat forgetful, was not sure when she questioned him where he was and wondered whether he was in [place]. She did help interpret our conversation because the patient speaks preferably and preferentially in [place]err[place]ian. REVIEW OF SYSTEMS: No CV, , pulmonary, eye, ENT system symptoms on review. MENTAL STATUS EXAM: Oriented to himself and situation. Speech has some latency, often responses monosyllabic. Abstraction is fair, computation somewhat impaired, language function intact. Mood is still somewhat dysphoric, anxious. Affect is mood congruent. No suicidal or homicidal ideation. IMPRESSION: Major depressive disorder; anxiety disorder, unspecified; major neurocognitive disorder, early Alzheimer, vascular with depression. Rest unchanged. PLAN: Continue Wellbutrin XL [address] of the Paxil. Rest psychotropics to be continued as previously mentioned. Reviewed the patient's history at some length with the daughter once again, discussed progress, discharge plan, after care plan. MAN Radha ROTHMAN MD DR: REJI/nancy JOB#: [id number] / [id number]
[2017-02-26 18:06] VITALS: BP 136/74
[2017-02-26] MEDS: INSULIN DETEMIR 300 UNITS/3 ML INSULN.PEN. SQ SCH (21:00)
--- NOTE | 2017-02-26 21:15 | PDOC ---
Exam Note: Stuart Note: Please also refer to the separate dictated note~for this date of service dictated separately.~Patient seen individually. Discussed the patient with Nursing staff reviewed the chart.~Reviewed interim history and current functioning. Reviewed vital signs,~Labs/ Radiology~and current medications noted below. Continue current treatment with the changes noted in the dictated addendum note Assessment: Vital Signs: Vital Signs Date Time Temp Pulse Resp B/P (MAP) Pulse Ox O2 Delivery O2 Flow Rate FiO2 02/26/17 18:06 97.8 77 16 136/74 (94) 98 Room Air I&O Intake and Output 02/26/17 06:59 Intake Total 1300 ml Balance 1300 ml Intake Oral 1300 ml # Voids 4 # Bowel Movements 2 Labs: Laboratory Tests Test 02/26/17 07:22 02/26/17 11:09 02/26/17 16:16 02/26/17 19:01 Glucose (Fingerstick) 107 mg/dL (70-99) H 191 mg/dL (70-99) H 230 mg/dL (70-99) H 332 mg/dL (70-99) H Current Medications: Meds: Current Medications Allopurinol (Zyloprim) 100 mg DAILY PO Last administered on 02/26/17 08:44; Start 02/22/17 at 09:00 Ampicillin Sodium (Omnipen) 1 gm Q6HRS IV ; Start 02/22/17 at 00:00; Stop at 00:00; Status DC Atenolol (Tenormin) 25 mg DAILY PO Last administered on 02/26/17 08:05; Start 02/22/17 at 09:00 Aztreonam (Azactam) 0.5 gm Q6HRS IV ; Start 02/22/17 at 00:00; Stop 02/22/17 at 00:00; Status DC Calcitriol (Rocaltrol) 0.25 mcg DAILY PO Last administered on 02/26/17 08:04 ; Start 02/22/17 at 09:00 Clopidogrel Bisulfate (Plavix) 75 mg DAILY PO Last administered on 02/26/17 08:04; Start 02/22/17 at 09:00 Furosemide (Lasix) 20 mg DAILY PO Last administered on 02/26/17 08:04; Start 02/22/17 at 09:00 Insulin Detemir (Levemir) 5 units HS SQ Last administered on 02/25/17 20:10; Start 02/21/17 at 21:00 Lactobacillus Rhamnosus (Culturelle) 1 cap BID PO Last administered on 08:03; Start 02/21/17 at 21:00 Meclizine HCl (Antivert) 12.5 mg PRN Q6HRS PRN PO DIZZINESS; Start 02/21/17 at 20:00 Paroxetine HCl (Paxil) 20 mg DAILY PO ; Start 02/22/17 at 09:00; Stop at 09:00; Status DC Prednisone (Prednisone) 5 mg DAILY PO Last administered on 02/26/17 08:06; Start 02/22/17 at 09:00 Primidone (Mysoline) 50 mg QHS PO Last administered on 02/25/17 20:07; Start 02/21/17 at 21:00 Tobramycin Sulfate (Tobrex Ophth Soln) 1 drop QID OD Last administered on 02/26 17:17; Start 02/21/17 at 21:00 Zolpidem Tartrate (Ambien) 2.5 mg PRN QHS PRN PO INSOMNIA, MAY REPEAT IN 1HR; Start 02/21/17 at 20:00 Non-Formulary Medication 12.5 gm PRN Q15MIN PRN IV SEE COMMENTS; Start at 20:00; Stop 02/21/17 at 20:16; Status DC Non-Formulary Medication QIDACHS SQ ; Start 02/21/17 at 21:00; Stop 02/21/17 at 21:00; Status DC Multivitamins/ Calcium (Thera-M Plus) 1 tab DAILY PO Last administered on 02/26 08:06; Start 02/22/17 at 09:00 Ampicillin Sodium 1 gm/Sodium Chloride 50 ml @ 100 mls/hr Q6HRS IV Last administered on 02/22/17 06:07; Start 02/22/17 at 00:00; Stop 02/22/17 at 06 :29; Status DC Ampicillin Sodium 1 gm/Sodium Chloride 100 ml @ 200 mls/hr Q6HRS IV Last administered on 02/22/17 14:17; Start 02/22/17 at 12:00; Stop 02/22/17 at 15 :01; Status DC Aztreonam 0.5 gm/ Sodium Chloride 100 ml @ 200 mls/hr Q6HRS IV Last administered on 02/22/17 13:07; Start 02/22/17 at 00:00; Stop 02/22/17 at 15 :01; Status DC Dextrose 12.5 gm PRN Q15MIN PRN IV SEE COMMENTS; Start 02/21/17 at 20:15; Stop 02/21/17 at 20:17; Status DC Insulin Aspart (NovoLOG) 0-9 UNITS QIDACHS SQ Last administered on 02/26/17 17:21; Start 02/21/17 at 21:00 Dextrose 12.5 gm PRN Q15MIN PRN IV SEE COMMENTS; Start 02/21/17 at 20:15 Paroxetine HCl (Paxil) 30 mg DAILY PO Last administered on 02/24/17 10:33; Start 02/22/17 at 09:00; Stop 02/24/17 at 17:44; Status DC Amoxicillin (Amoxil) 500 mg [id number] PO Last administered on 02/26/17 14:33; Start 02/22/17 at 21:00 Bupropion HCl (Wellbutrin Xl) 150 mg DAILY PO Last administered on 02/26/17 08:06; Start 02/25/17 at 09:00 Active Scripts Active Ambien (Zolpidem Tartrate) 5 Mg Tablet 2.5 Mg PO PRN QHS PRN 30 Days Mysoline (Primidone) 50 Mg Tablet 50 Mg PO QHS 30 Days Prednisone 5 Mg Tablet 5 Mg PO DAILY 30 Days Meclizine Hcl 12.5 Mg Tablet 12.5 Mg PO PRN Q6HRS PRN 14 Days Culturelle (Lactobacillus Rhamnosus Gg) 1 Each Cap.sprink 1 Cap PO BID 14 Days Dextrose 50%-Water Syringe (Dextrose 50 % In Water) 50 Ml Disp.syrin 12.5 Gm IV PRN Q15MIN PRN 30 Days Paroxetine Hcl 20 Mg Tablet 1 Tab PO DAILY Reported Ampicillin Sodium 1 Gm Vial 1 Gm IV Q6HRS Aztreonam 1 Gm Vial 0.5 Gm IV Q6HRS Levemir Flextouch (Insulin Detemir) 100 Unit/1 Ml Insuln.pen 5 Unit SQ HS Multivitamins (Multivitamin) 1 Each Tablet 1 Tab PO DAILY Tobramycin 5 Ml Drops 1 Drop OD QID Novolog (Insulin Aspart) 100 Unit/1 Ml Cartridge 0-9 Unit SQ QIDACHS Rocaltrol (Calcitriol) 0.25 Mcg Capsule 1 Cap PO DAILY Lasix (Furosemide) 20 Mg Tablet 1 Tab PO DAILY Tenormin (Atenolol) 25 Mg Tablet 1 Tab PO DAILY Zyloprim (Allopurinol) 100 Mg Tablet 100 Mg PO DAILY Plavix (Clopidogrel Bisulfate) 75 Mg Tablet 1 Tab PO DAILY I have reviewed the current psychotropics carefully including drug interactions. Risk benefit ratio favors no change other than as noted in my dictated progress note. Diagnosis: Problems: (1) Dementia, vascular, with depression (2) Anxiety disorder (3) Major depressive disorder, recurrent episode RUTHIE ROTHMAN MD Feb 26, 2017 21:15
[2017-02-26] MEDS: PRIMIDONE 50 MG TABLET PO SCH (21:17)
--- NOTE | 2017-02-26 21:41 | PN ---
DATE: 02/26/2017 This note covers the elements not covered in my initial note of 02/26/2017. SUBJECTIVE: The patient was seen individually the evening of 02/26/2017. Discussed with nursing staff. Overall, the patient has been coming out more for meals and activities, still somewhat confused. REVIEW OF SYSTEMS: No CV, , pulmonary, eye system symptoms on review. Reliability poor. MENTAL STATUS EXAM: Oriented to himself, situation, speaks preferentially in Monegasque. Abstraction fair, computation impaired, language function intact, mood and affect less withdrawn. Short term memory is impaired. LABORATORY DATA: Reviewed. IMPRESSION: Major depressive disorder, recurrent, mild cognitive impairment versus major neurocognitive disorder, vascular with depression. Rest unchanged. PLAN: Continue current psychotropics mentioned in my initial note. Adjust further as clinically indicated. MAN Radha ROTHMAN MD DR: REJI/nancy JOB#: [id number] / [id number]
[2017-02-27 05:31] VITALS: BP 132/66
[2017-02-27 08:30] VITALS: BP 132/66
[2017-02-27] MEDS: CLOPIDOGREL BISULFATE 75 MG TABLET PO SCH (08:30)
[2017-02-27] MEDS: ALLOPURINOL 100 MG TABLET. PO SCH (08:30)
[2017-02-27] MEDS: FUROSEMIDE 20 MG TABLET PO SCH (08:30)
[2017-02-27] MEDS: ATENOLOL 25 MG TABLET PO SCH (08:30)
[2017-02-27] MEDS: MULTIVITAMIN with MINERAL TABLET. PO SCH (08:30)
[2017-02-27] MEDS: LACTOBACILLUS RHAMNOSUS GG 1 CAPSULE. PO SCH (08:30)
[2017-02-27] MEDS: AMOXICILLIN 250 MG CAPSULE PO SCH ×2 (08:30→13:40)
[2017-02-27] MEDS: predniSONE 5 MG TABLET PO SCH (08:30)
[2017-02-27] MEDS: TOBRAMYCIN 0.3% OPHTH SOLUTION 5ML BOTTLE. OD SCH ×2 (08:32→13:40)
[2017-02-27] MEDS: INSULIN ASPART 300 UNITS/3 ML INSULN.PEN SQ SCH ×2 (08:41→12:11)
[2017-02-27] MEDS: CALCITRIOL 0.25 MCG CAPSULE PO SCH (09:06)
[2017-02-27] MEDS: buPROPion XL 150 MG TAB.ER.24H PO SCH (09:06)
[2017-02-27] MEDS ORDERED: AMOX-260 PO (11:32)
[2017-02-27] MEDS ORDERED: TOBR5DRO6 OD (11:32)
[2017-02-27] MEDS ORDERED: BUPR-192 PO (11:32)
== END 2017-02-27 04:30 | disposition home or self-care (01) | DRG 885 ==
LOC: LND 18:40
PROVIDERS: ADMIT Family Medicine; ATTEND Family Medicine
DX: F33.9 Major depressive disorder, recurrent, unspecified (principal); E11.9 Type 2 diabetes mellitus without complications; F02.80 Dementia in other diseases classified elsewhere, unspecified severity, without behavioral disturbance, psychotic disturbance, mood disturbance, and anxiety; G30.0 Alzheimer's disease with early onset; F01.50 Vascular dementia, unspecified severity, without behavioral disturbance, psychotic disturbance, mood disturbance, and anxiety; F41.9 Anxiety disorder, unspecified; I10 Essential (primary) hypertension; Z98.61 Coronary angioplasty status
CPT/HCPCS: 36415; 80048; 82947; 85025; J0290; J3490; J7512; 97110; 97112; 97116; 97530; 97535